=== PATIENT | male | born 1960 | race Two or more races ===

== ENCOUNTER 2020-02-11 08:49 | Outpatient (REF) | payer OTHER, SELFPAY | END 2020-02-11 08:50 | disposition home or self-care (01) | LOC: HO.LAB 08:49 | PROVIDERS: Visit Provider Internal Medicine | DX: Z20.828 Contact with and (suspected) exposure to other viral communicable diseases (principal) | CPT/HCPCS: 87635 ==

== ENCOUNTER 2021-01-21 10:09 | Emergency (ER) | payer OTHER, SELFPAY ==
--- NOTE | ~2021-01-21 | XR_ITS ---
EXAMINATION: XR CHEST CLINICAL INFORMATION: Chest pain COMPARISON: Chest radiographs 06/02/2014, 10/28/2006 TECHNIQUE: Portable upright AP view of the chest was obtained. FINDINGS: There is no pneumothorax or pneumomediastinum. No pleural reaction, airspace consolidation, or effusion. No visible groundglass opacities. The heart is normal in size. The vascularity is normal. The visualized hilar and mediastinal contours and bony structures are unremarkable. XR/XR chest 1V IMPRESSION: Unremarkable examination.
[2021-01-21 10:13] VITALS: BP 151/85; PULSE 71; RESP 18; TEMP 36.2; O2SAT 96; BMI 35.9
--- NOTE | 2021-01-21 10:24 | ED_ITS ---
HPI - Chest Pain General Chief Complaint: Chest Pain Stated Complaint: chest pain Time Seen by Provider: 01/21/21 10:15 Source: patient Mode of arrival: ambulatory Limitations: no limitations History of Present Illness HPI narrative: Patient presents to ED for atypical stermal chest pain presentation. Patient states since yesterday having sternall chest pain is also worse on movement. Patient states also mild pleuritic chest pain. Patient denies any swelling of lower extremities, calf pain, shortness of breath, coughing up blood, fever or chills. Patient does states history of GERD. Patient states mild pleuretic chest pain. Related Data Previous Rx's Medication Instructions Recorded famotidine 20 mg tablet (Pepcid) 20 mg PO BID 10 Days #20 tab 01/21/21 Allergies Allergy/AdvReac Type Severity Reaction Status Date / Time No Known Allergies Allergy Unverified 01/08/20 16:39 [No Known Allergies*] Review of Systems Review of Systems: Yes all other systems are reviewed and are negative Constitutional: Constitutional: Reports as per HPI and Reports no additional constitutional complaints Eyes: Eyes: Reports as per HPI and Reports no additional eye complaints ENT: Reports system reviewed and no additional complaints, except as documented and Reports as per HPI Cardiovascular: Cardiovascular: Reports as per HPI, Reports no additional cardiovascular complaints and Reports chest pain Respiratory: Respiratory: Reports as per HPI and Reports no additional respiratory complaints Gastrointestinal: Gastrointestinal: Reports as per HPI and Reports no additional gastrointestinal complaints Genitourinary: Genitourinary: Reports no additional male genitourinary comp laints and Reports as per HPI Musculoskeletal: Musculoskeletal: Reports no additional musculoskeletal complaints and Reports as per HPI Neurologic: Reports system reviewed and no additional complaints, except as documented and Reports as per HPI Psychiatric: Psychiatric: Reports no additional psychiatric complaints and Reports as per HPI [facility] Past Medical History Medical History (Updated 01/21/21 @ 12:46 by MARY Bronson) No known health problems Social History Social History Alcohol intake: unknown Patient Tobacco Use Status: Tobacco use Unknown Use of substances other than those prescribed or required for medical reasons: Unknown Advance Directives: No Advance Directives Information Provided: No Physical Exam Vital Signs: Vital Signs: Last Vital Signs Temp 97.2 F 01/21/21 10:13 Pulse 64 01/21/21 12:40 Resp 18 01/21/21 12:40 BP 128/78 01/21/21 12:40 Pulse Ox 98 01/21/21 12:40 Body Mass Index 35.9 Const: General: cooperative, healthy appearing, comfortable, no acute distress, well developed, alert, awake and Physically active Orientation/consciousness: patient oriented x3 HENMT: Head: Yes normal to inspection, Yes No palpable skull fracture present, Yes normocephalic and Yes atraumatic Eyes: General: appearance normal, both eyes and all related structures Neck: Neck: Yes normal visual inspection, Yes full ROM, Yes no lymphadenopathy, Yes no meningeal signs, Yes trachea midline, Yes supple and No tender Chest: Chest palpation & inspection: normal inspection of the chest and normal palpation of entire chest wall Resp: Effort & Inspection: normal respiratory effort and able to speak in complete sentences Auscultation: clear to auscultation bilaterally Cardio: Jugular venous distension: no JVD Heart sounds: S1 normal heart sound present and S2 normal heart sound present GI: Inspection: Yes normal to inspection and No abdominal wall ecchymosis Palpation (GI): Soft to palpation, not firm, nontender, no guarding and not rigid : General: No CVA tenderness and Yes no CVA tenderness Back/Spine/Pelvis: Back: no CVA tenderness, No CVA tenderness and No back tenderness Skin: General skin exam: no rashes or lesions noted and elasticity normal Neuro: General: patient oriented x3, gait normal, no meningeal signs and CN's II-XI intact bilaterally Cranial nerves: Yes CN's II-XII intact bilaterally Extrem: Other: Lower extremities negative for swelling, pitting edema, or calf tenderness. General: Yes normal to inspection and Yes full ROM Psych: Appearance: grossly normal, well kempt and not disheveled Course Course Course Narrative: Atypical chest pain. Patient have cardiac evaluation, EKG, and be given GERD like cocktail. Reevaluation(s) Reevaluation #1: EKG negative STEMI. EKG does not show any new changes. Chest x-ray negative for pneumonia. Troponin after having symptoms for at least a day and a half came back negative. BNP negative for CHF. D-dimer negative. Wells criteria is 0. COVID swab negative. Patient informed to follow-up with PCP for further evaluation. Patient states symptoms improved with GERD meds. Patient given copy of labs, images, and EKG for follow-up with PCP. Time: 12:41 MDM - Chest Pain MDM Narrative Medical decision making narrative: Atypical chest pain. GERD Lab Data Result diagrams: 01/21/21 10:36 01/21/21 10:36 Labs: Lab Results 01/21/21 01/21/21 01/21/21 Range/Units 10:36 10:36 10:36 WBC 6.8 (4.8-10.8) X10*3/uL RBC 4.24 L (4.60-5.80) X10*6/uL Hgb 12.9 L (14.0-18.0) g/dl Hct 37.5 L (42-52) % MCV 88.4 (80-98) fL MCH 30.4 (27.0-33.0) pg MCHC 34.4 (31.0-36.0) g/dl RDW 13.0 (11.0-16.0) % Plt Count 204 (160-400) X10*3/uL MPV 9.8 (9.4-12.4) fL Immature Gran % (Auto) 0.3 (0.0-0.4) % Neut % (Auto) 76.5 H (45-73) % Lymph % (Auto) 14.7 L (20-40) % [place] % (Auto) 7.3 (2-11) % Eos % (Auto) 0.9 (0-4) % Baso % (Auto) 0.3 (0-2) % Lymph # (Auto) 1.0 L (1.2-4.9) X10*3/uL [place] # (Auto) 0.5 (0.1-1.2) X10*3/uL Eos # (Auto) 0.1 (0.0-0.4) X10*3/uL Baso # (Auto) 0.0 (0.0-0.2) X10*3/uL Abs Immat Gran (auto) 0.02 (0.00-0.03) X10*3/uL Absolute Neuts (auto) 5.2 (2.0-8.3) X10*3/uL Absolute Nucleated RBC 0.000 (0.0-0.012) X10*3/uL Nucleated RBC % (auto) 0.0 (0.0-0.2) /100WBC PT 12.3 (9.9-13.0) SEC INR 1.1 (0.9-1.1) APTT 31.9 (24.1-38.0) SEC D-Dimer < 200 NG/ML Sodium 141 (135-145) mmol/L Potassium 3.7 (3.3-5.1) mmol/L Chloride 109 H (96-108) mmol/L Carbon Dioxide 24 (22-29) mmol/L Anion Gap 12 (12-20) BUN 12 (9-16) mg/dL Creatinine 0.72 (0.5-1.4) mg/dL Estim Creat Clear Calc 141.0 Estimated GFR > 60 Random Glucose 122 H (60-115) mg/dL Calcium 8.9 (8.4-10.2) mg/dL Total Bilirubin 1.3 H (0.0-1.0) mg/dL AST 20 (5-37) U/L ALT 17 (0-40) U/L Alkaline Phosphatase 72 (39-117) U/L Troponin I High Sens (<3.5-35.0) ng/L B-Natriuretic Peptide (<100) pg/mL Total Protein 6.5 (6.5-8.0) g/dL Albumin 4.0 (3.5-5.0) g/dL COVID-19 (JUMANA) (Negative) COVID-19 Clin Com 01/21/21 01/21/21 Range/Units 10:36 10:36 WBC (4.8-10.8) X10*3/uL RBC (4.60-5.80) X10*6/uL Hgb (14.0-18.0) g/dl Hct (42-52) % MCV (80-98) fL MCH (27.0-33.0) pg MCHC (31.0-36.0) g/dl RDW (11.0-16.0) % Plt Count (160-400) X10*3/uL MPV (9.4-12.4) fL Immature Gran % (Auto) (0.0-0.4) % Neut % (Auto) (45-73) % Lymph % (Auto) (20-40) % [place] % (Auto) (2-11) % Eos % (Auto) (0-4) % Baso % (Auto) (0-2) % Lymph # (Auto) (1.2-4.9) X10*3/uL [place] # (Auto) (0.1-1.2) X10*3/uL Eos # (Auto) (0.0-0.4) X10*3/uL Baso # (Auto) (0.0-0.2) X10*3/uL Abs Immat Gran (auto) (0.00-0.03) X10*3/uL Absolute Neuts (auto) (2.0-8.3) X10*3/uL Absolute Nucleated RBC (0.0-0.012) X10*3/uL Nucleated RBC % (auto) (0.0-0.2) /100WBC PT (9.9-13.0) SEC INR (0.9-1.1) APTT (24.1-38.0) SEC D-Dimer NG/ML Sodium (135-145) mmol/L Potassium (3.3-5.1) mmol/L Chloride (96-108) mmol/L Carbon Dioxide (22-29) mmol/L Anion Gap (12-20) BUN (9-16) mg/dL Creatinine (0.5-1.4) mg/dL Estim Creat Clear Calc Estimated GFR Random Glucose (60-115) mg/dL Calcium (8.4-10.2) mg/dL Total Bilirubin (0.0-1.0) mg/dL AST (5-37) U/L ALT (0-40) U/L Alkaline Phosphatase (39-117) U/L Troponin I High Sens < 3.5 (<3.5-35.0) ng/L B-Natriuretic Peptide 40 (<100) pg/mL Total Protein (6.5-8.0) g/dL Albumin (3.5-5.0) g/dL COVID-19 (JUMANA) Negative (Negative) COVID-19 Clin Com See Note ECG Data ECG #1: Interpretation: Normal sinus rhythm. Ventricular rate 67. Pr interval 168. QRS 96. QTC 424. Negative STEMI Discharge Plan Discharge Clinical Impression: Atypical chest pain, Chest pain due to GERD Patient Disposition: Home, Self-Care Instructions: Chest Pain (ED), Gastroesophageal Reflux Disease (ED) Additional Instructions: Return to the ED immediately swelling of lower extremities, calf pain, coughing up blood, fever, chills, worsening chest pain, shortness of breath, dizziness, weakness, or any other concerning symptoms. Please follow-up with your primary care provider Prescriptions: New famotidine [Pepcid] 20 mg tablet 20 mg PO BID 10 Days Qty: 20 RF: 0 Interventions: ED Discharge Assessment Last Done: 01/21/21 13:09 Discharge Date/Time: 01/21/21 13:10 Print Language: Singaporean
[2021-01-21 10:41] LABS: MANUAL DIFF FLAG NO
[2021-01-21 10:44] LABS: Basophils Percent Auto 0.3 % (0-2); Eosinophils Absolute Auto 0.1 X10*3/uL (0.0-0.4); Eosinophils Percent Auto 0.9 % (0-4); Hematocrit 37.5 % (42-52); Hemoglobin 12.9 g/dl (14.0-18.0); Imm Gran Abs Auto 0.02 X10*3/uL (0.00-0.03); Imm Gran Pct Auto 0.3 % (0.0-0.4); Lymphocytes Percent Auto 14.7 % (20-40); Mean Corpuscular HGB Conc 34.4 g/dl (31.0-36.0); Mean Corpuscular Hemoglobin 30.4 pg (27.0-33.0); Mean Corpuscular Volume 88.4 fL (80-98); Mean Platelet Volume 9.8 fL (9.4-12.4); Monocytes Absolute Auto 0.5 X10*3/uL (0.1-1.2); Monocytes Percent Auto 7.3 % (2-11); Neutrophils Absolute Auto 5.2 X10*3/uL (2.0-8.3); Neutrophils Percent Auto 76.5 % (45-73); Platelet Count 204 X10*3/uL (160-400); Red Blood Count 4.24 X10*6/uL (4.60-5.80); White Blood Count 6.8 X10*3/uL (4.8-10.8)
[2021-01-21] MEDS: PHENobarb/Hyoscy/Atropine/Scop 10 ML ELIXIR PO (10:46)
[2021-01-21] MEDS: Lidocaine HCl Viscous 2 % 15 ML SOLUTION MUCOUS MEM (10:46)
[2021-01-21] MEDS: Famotidine 20 MG TABLET PO (10:46)
[2021-01-21] MEDS: Magnesium Hydrox/Alum Hydrox 30 ML ORAL.SUSP PO (10:47)
[2021-01-21 10:49] VITALS: BP 123/71; PULSE 74; RESP 16; O2SAT 98
[2021-01-21 10:50] LABS: INTERNATIONAL NORM RATIO 1.1 (0.9-1.1); Prothrombin Time 12.3 SEC (9.9-13.0)
[2021-01-21 10:53] LABS: Partial Thromboplastin Time 31.9 SEC (24.1-38.0)
[2021-01-21 10:55] LABS: D Dimer < 200 NG/ML
[2021-01-21 10:59] LABS: COVID-19 Test Negative (Negative); IDNOW Serial# 9DD0AD1C
[2021-01-21 11:02] LABS: Alanine Aminotransferase 17 U/L (0-40); Alkaline Phosphatase 72 U/L (39-117); Anion Gap 12 (12-20); Aspartate Amino Transferase 20 U/L (5-37); Bilirubin Total 1.3 mg/dL (0.0-1.0); Blood Urea Nitrogen 12 mg/dL (9-16); Calcium 8.9 mg/dL (8.4-10.2); Carbon Dioxide 24 mmol/L (22-29); Chloride 109 mmol/L (96-108); Estimated Glomerular Filt Rate > 60; Glucose Random 122 mg/dL (60-115); Potassium 3.7 mmol/L (3.3-5.1); Sodium 141 mmol/L (135-145); Total Protein 6.5 g/dL (6.5-8.0)
[2021-01-21 11:04] LABS: B Type Natriuretic Peptide 40 pg/mL (<100); Troponin-I High Sensitivity < 3.5 ng/L (<3.5-35.0)
--- NOTE | 2021-01-21 11:41 | ECG_ITS ---
Test Reason : CHEST PAIN Blood Pressure : / mmHG Vent. Rate : 067 BPM Atrial Rate : 067 BPM P-R Int : 168 ms QRS Dur : 096 ms QT Int : 402 ms P-R-T Axes : 015 -04 010 degrees QTc Int : 424 ms Normal sinus rhythm Nonspecific T wave abnormality Abnormal ECG When compared with ECG of 06-JUN-2016 19:10, No significant change was found Referred By: Rome Millard Electronically Signed By:JESSICA ESPOSITO
[2021-01-21 12:40] VITALS: BP 128/78; PULSE 64; RESP 18; O2SAT 98
== END 2021-01-21 13:10 | disposition home or self-care (01) ==
PROVIDERS: Physician Assistant; Emergency Provider Emergency Medicine; PCP Internal Medicine
DX: R07.89 Other chest pain (principal); K21.9 Gastro-esophageal reflux disease without esophagitis; Z20.822 Contact with and (suspected) exposure to COVID-19; Z79.899 Other long term (current) drug therapy
CPT/HCPCS: 36415; 71045; 80053; 83880; 84484; 85025; 85379; 85610; 85730; 87635; 93005; 99283; 99284; 99285

== ENCOUNTER 2021-02-22 08:26 | Outpatient (REF) | payer OTHER, SELFPAY | END 2021-02-22 08:27 | disposition home or self-care (01) | LOC: HO.LAB 08:26 | PROVIDERS: PCP Internal Medicine; Visit Provider Internal Medicine | DX: Z20.822 Contact with and (suspected) exposure to COVID-19 (principal) | CPT/HCPCS: C9803; U0003; U0005 ==

== ENCOUNTER 2021-03-03 11:50 | Outpatient (REF) | payer OTHER, SELFPAY ==
[2021-03-03 12:16] LABS: COVID-19 Test Positive (Negative)
== END 2021-03-03 11:51 | disposition home or self-care (01) ==
LOC: HO.LAB 11:50
PROVIDERS: PCP Internal Medicine; Visit Provider Internal Medicine
DX: Z20.822 Contact with and (suspected) exposure to COVID-19 (principal)
CPT/HCPCS: 36415; 87635; C9803

== ENCOUNTER 2021-09-30 16:42 | Emergency (ER) | payer OTHER, SELFPAY ==
[2021-09-30 17:48] VITALS: BP 126/87; PULSE 73; RESP 16; TEMP 36.7; O2SAT 98; BMI 33.7
[2021-09-30] MEDS: Acetaminophen 325 MG TABLET 975 MG PO (17:55)
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
[2021-09-30 19:04] VITALS: RESP 18
[2021-09-30] MEDS: HYDROmorphone HCl 2 MG/ML VIAL IM (19:04)
[2021-09-30] MEDS: Ketorolac Tromethamine 60 MG/2 ML VIAL IM (19:05)
[2021-09-30] MEDS: Bacitracin Oint 14 GM TUBE 1 APPL TOPICAL (19:06)
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
== END 2021-09-30 19:27 | disposition home or self-care (01) ==
PROVIDERS: Emergency Provider Emergency Medicine; PCP Internal Medicine
DX: T25.112A Burn of first degree of left ankle, initial encounter (principal); T24.192A Burn of first degree of multiple sites of left lower limb, except ankle and foot, initial encounter; T25.121A Burn of first degree of right foot, initial encounter; T23.101A Burn of first degree of right hand, unspecified site, initial encounter; T31.0 Burns involving less than 10% of body surface; X10.2XXA Contact with fats and cooking oils, initial encounter; Y93.9 Activity, unspecified; Y92.000 Kitchen of unspecified non-institutional (private) residence as the place of occurrence of the external cause; Y99.9 Unspecified external cause status
CPT/HCPCS: 96372; 99284; J1170; J1885

== ENCOUNTER 2021-10-02 11:11 | Emergency (ER) | payer OTHER, SELFPAY ==
[2021-10-02 11:13] VITALS: BP 156/75; PULSE 65; RESP 18; TEMP 36.4; O2SAT 98; BMI 34.4
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
[2021-10-02] MEDS: Diphth,Pertus(ACell),Tet Adult 0.5 ML SYRINGE IM (12:07)
[2021-10-02 12:28] VITALS: BP 161/92; PULSE 67; RESP 18; TEMP 36.7; O2SAT 93
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
== END 2021-10-02 14:07 | disposition home or self-care (01) ==
PROVIDERS: Emergency Provider Emergency Medicine; PCP Internal Medicine
DX: T23.002A Burn of unspecified degree of left hand, unspecified site, initial encounter (principal); T25.021A Burn of unspecified degree of right foot, initial encounter; T24.002A Burn of unspecified degree of unspecified site of left lower limb, except ankle and foot, initial encounter; X10.2XXA Contact with fats and cooking oils, initial encounter; Y93.9 Activity, unspecified; Y92.9 Unspecified place or not applicable; Y99.9 Unspecified external cause status
CPT/HCPCS: 16020; 90471; 90715; 96374; 99283; 99284

== ENCOUNTER 2023-08-26 11:41 | Emergency (ER) | payer OTHER, SELFPAY ==
[2023-08-26] VITALS (7 sets, daily range): BP systolic 150–171; BP diastolic 79–93; PULSE 55–70; RESP 16–18; TEMP 36.2–37.1; O2SAT 93–98; BMI 35.7
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
--- NOTE | 2023-08-26 11:56 | ECG_ITS ---
Test Reason : SYNCOPE Blood Pressure : / mmHG Vent. Rate : 065 BPM Atrial Rate : 065 BPM P-R Int : 172 ms QRS Dur : 092 ms QT Int : 410 ms P-R-T Axes : 005 -12 003 degrees QTc Int : 426 ms Normal sinus rhythm Minimal voltage criteria for LVH, may be normal variant ( R in aVL ) T wave abnormality, consider anterior ischemia Abnormal ECG When compared to the previous EKG of T wave changes more prominent Referred By: Ann Rose Electronically Signed By:Adria Ochoa
[2023-08-26 12:21] LABS: MANUAL DIFF FLAG NO
[2023-08-26 12:27] LABS: Basophils Percent Auto 0.5 % (0-2); Eosinophils Absolute Auto 0.1 X10*3/uL (0.0-0.4); Hematocrit 37.9 % (42.0-52.0); Hemoglobin 13.3 g/dl (14.0-18.0); Imm Gran Abs Auto 0.01 X10*3/uL (0.00-0.03); Imm Gran Pct Auto 0.2 % (0.0-0.4); Lymphocytes Percent Auto 17.8 % (20-40); Mean Corpuscular HGB Conc 35.1 g/dl (31.0-36.0); Mean Corpuscular Hemoglobin 30.9 pg (27.0-33.0); Mean Corpuscular Volume 88.1 fL (80.0-98.0); Mean Platelet Volume 9.2 fL (9.4-12.4); Monocytes Absolute Auto 0.6 X10*3/uL (0.1-1.2); Monocytes Percent Auto 10.6 % (2-11); Neutrophils Absolute Auto 3.8 x10*3/uL (2.0-8.3); Neutrophils Percent Auto 68.9 % (45-73); Platelet Count 180 X10*3/uL (160-400); Red Cell Distribution Width 13.3 % (11.0-16.0); White Blood Count 5.5 X10*3/uL (4.8-10.8)
[2023-08-26 12:33] LABS: INTERNATIONAL NORM RATIO 0.9 (0.9-1.1); Prothrombin Time 11.1 SEC (11.1-13.3)
[2023-08-26] MEDS: 0.9 % Sodium Chloride 1,000 ML 999 ML IVCONT (12:36)
[2023-08-26 12:42] LABS: D Dimer High Sensitivity < 150 NG/ML
[2023-08-26 12:43] LABS: B Type Natriuretic Peptide 22 pg/mL (<100)
[2023-08-26 12:46] LABS: Alanine Aminotransferase 19 U/L (0-40); Albumin Level 4.2 g/dL (3.5-5.0); Alkaline Phosphatase 69 U/L (39-117); Anion Gap 11 (12-20); Aspartate Amino Transferase 17 U/L (5-37); Bilirubin Total 0.7 mg/dL (0.0-1.0); Blood Urea Nitrogen 10 mg/dL (9-16); Calcium 9.2 mg/dL (8.4-10.2); Carbon Dioxide 26 mmol/L (22-29); Chloride 109 mmol/L (96-108); Creatinine Clr Calc Pharmacy 131.7; Estimated Glomerular Filt Rate > 60; Glucose Random 107 mg/dL (60-115); Magnesium 2.1 mg/dL (1.6-2.6); Potassium 3.8 mmol/L (3.3-5.1); Sodium 142 mmol/L (135-145)
[2023-08-26 12:57] LABS: Troponin-I High Sensitivity < 2.7 ng/L (<3.5-35.0)
[2023-08-26 12:59] LABS: Influenza A PCR NEGATIVE (Negative); Influenza B PCR NEGATIVE (Negative); Resp Syncy Virus RNA Qual PCR NEGATIVE (Negative); SARS COV2 PCR INHOUSE NEGATIVE (Negative)
[2023-08-26 15:23] LABS: Troponin-I High Sensitivity < 2.7 ng/L (<3.5-35.0)
== END 2023-08-26 15:53 | disposition home or self-care (01) ==
PROVIDERS: Nurse Practitioner Family; Emergency Provider Emergency Medicine; PCP Internal Medicine
DX: R55 Syncope and collapse (principal); Z03.818 Encounter for observation for suspected exposure to other biological agents ruled out
CPT/HCPCS: 0241U; 36415; 80053; 83735; 83880; 84484; 85025; 85379; 85610; 93005; 96360; 99284; 99285

== ENCOUNTER → 2023-08-26 11:56 | Outpatient (BNV) | payer OTHER, SELFPAY | PROVIDERS: Emergency Provider Emergency Medicine; PCP Internal Medicine; Visit Provider Internal Medicine Cardiovascular Disease | DX: R94.31 Abnormal electrocardiogram [ECG] [EKG] (principal) | CPT/HCPCS: 93010 ==

== ENCOUNTER 2023-09-06 13:53 | Outpatient (AMB) | payer OTHER, SELFPAY ==
--- NOTE | 2023-09-06 13:56 | MHC.OFFVIS ---
Vital Signs 09/06/23 13:57 09/06/23 14:21 09/06/23 14:21 09/06/23 14:21 Height 5 ft 10 in Weight 235 lb 14.314 oz BMI 33.8 BP 138/70 140/86 H 142/95 H 133/89 Blood Pressure Location Lt brachial Lt brachial Lt brachial Lt brachial Position Sitting Supine Sitting Standing Pulse 68 57 60 69 Pulse Source Pulse Oximeter Pulse Oximeter Pulse Oximeter Pulse Oximeter Pulse Oximetry (%) 98 Oxygen Delivery Method Room Air Intake [place] [facility] [place] Allergies Seasonal Allergies Allergy (Mild, Verified 09/06/23 14:07) Sneezing HPI Comments Details: 62-year-old male presents today for as a new patient to follow-up after the ED for a near syncopal episode. He was driving in his car and he suddenly felt a tingling sensation in his head. He reports this is the only time this has happened. He denies any recent illness, shortness of breath, chest pains, or significant medical history. He had some palpitations many years ago when he smoked and drank a lot of caffeine. He reports his blood pressures have varied at home from 130s-190s, but he notes his cuff is very old. He no longer smokes. He reports an echocardiogram is to be performed 09/10 at [facility]. [facility] Medical History Back pain Social History Alcohol intake: former Patient Tobacco Use Status: Former Tobacco user Review of Systems Const Denies weakness ENT Denies dizziness Card Denies chest pain, Denies chest pain with activity, Denies syncope, Denies rapid heart rate, Denies pedal edema, Denies edema, Denies leg edema, Denies lightheadedness, Denies palpitations, Denies dyspnea, Denies dyspnea on exertion and Denies orthopnea Resp Denies cough, Denies dyspnea and Denies dyspnea on exertion GI Denies hematochezia and Denies change in stool character Musc Denies abnormal gait, Denies muscle cramps, Denies muscle weakness, Denies numbness, Denies radiating pain into limb and Denies tingling Neuro Denies abnormal gait, Denies dizziness, Denies syncope, Denies numbness, Denies tingling and Denies weakness Endo Denies palpitations Physical Exam Vital Signs: Last Vital Signs Pulse 69 09/06/23 14:21 BP 133/89 09/06/23 14:21 Pulse Ox 98 09/06/23 13:57 Oxygen Delivery Method Room Air 09/06/23 13:57 BMI result Body Mass Index 33.8 Const General: healthy appearing and no acute distress Orientation/consciousness: patient oriented x3 HEENT Head: Yes normal to inspection Eyes General: appearance normal, both eyes and all related structures Neck Neck: Yes normal visual inspection Chest Chest palpation & inspection: normal inspection of the chest Resp Effort & Inspection: normal respiratory effort Auscultation: clear to auscultation bilaterally Cardio Jugular venous distension: no JVD Palpation: normal PMI Rate: regular rate Rhythm: regular rhythm Heart sounds: S1 normal heart sound present, S2 normal heart sound present, no click, no gallops, no murmurs and no rubs GI Inspection: Yes normal to inspection Palpation (GI): Soft to palpation Skin General skin exam: no rashes or lesions noted Neuro General: patient oriented x3 Extrem General: Yes normal to inspection Psych Appearance: grossly normal Assessment & Plan Assessment & Plan (1) Near syncope: Code(s): R55 - Syncope and collapse Category: Medical Plan Will order stress test to evaluate heart rate and blood pressure response to exertion and assess for ischemia. He has a history of back and knee pain so will order with nuclear imaging incase he can not adequately walk on the treadmill to assess for ischemia. Will request his echo results once performed. Ensure adequate hydration and well rounded diet. Orders: Orders NM cardiolite stress test 09/06/23 R55 - Syncope and collapse CA stress test 09/06/23 R55 - Syncope and collapse Medications: Discontinued cephalexin Discontinued Reason: Patient no longer taking 500 mg PO Q6H 7 days 28 caps 0RF famotidine (Pepcid) Discontinued Reason: Patient no longer taking 20 mg PO BID 10 days 20 tabs 0RF bacitracin Apply to the burn area 3 times a day Discontinued Reason: Patient no longer taking 1 appl topical TID 30 grams 3RF oxycodone Partial Fill upon patient request. Discontinued Reason: Patient no longer taking 5 mg PO TID PRN 20 tabs 0RF pain Coding Level of Care Code New Pt Level 3 (19220) Diagnoses Near syncope R55
[2023-09-06 13:57] VITALS: BP 138/70; PULSE 68; O2SAT 98; BMI 33.8
[2023-09-06 14:21] VITALS: BP 133/89; BP 140/86; BP 142/95; PULSE 57; PULSE 60; PULSE 69
== END 2023-09-06 14:46 | disposition home or self-care (01) ==
PROVIDERS: PCP Internal Medicine; Visit Provider Nurse Practitioner
DX: R55 Syncope and collapse (principal)
CPT/HCPCS: 99203

== ENCOUNTER → 2023-09-06 13:53 | Outpatient (BNVA) | payer OTHER, SELFPAY | PROVIDERS: PCP Internal Medicine; Visit Provider Nurse Practitioner | DX: R55 Syncope and collapse (principal) ==

== ENCOUNTER → 2023-10-23 09:06 | Outpatient (REF) | payer OTHER, SELFPAY ==
--- NOTE | ~2023-10-23 | NM_ITS ---
Exercise Myocardial perfusion study Indication: Syncope to evaluate for myocardial ischemia Technique: The patient was brought in for an exercise perfusion study on 10/23/2023. Patient performed exercise as per Doug protocol and was injected 35 mCi of sestamibi was given intravenously one target HR was achieved. Images were obtained using the SPECT gamma camera interlaced with the gating device. Images were obtained in supine position. Resting perfusion study was performed on 10/29/2023. Patient was administered 35 mCi of sestamibi intravenously at rest. Images were then obtained in supine position. Images obtained with and without CT attenuation. Total DLP 184 mGy-cm. Images were processed with the software and compared side to side in short axis, horizontal long axis and vertical long axis views. Findings: The stress perfusion study showed non attenuated images show mildly to moderately reduced uptake in the apical and inferoapical wall of the LV myocardium. Remainder of the LV myocardium is normally perfused. Attenuation corrected images show mildly reduced uptake in the apex of the LV myocardium.. The gated study shows normal LV systolic function with calculated LVEF of 55%. LV cavity is normal in size. The gated study shows normal systolic wall thickening and contraction of all segments. There is no transient ischemic dilation. Resting study shows non attenuated images show improved uptake in the apical and inferoapical wall of the LV myocardium. Remainder of the LV myocardium is normally perfused. Attenuated corrected images show improved uptake in the apex of the LV myocardium.. Gating at rest reveals normal systolic wall motion with ejection fraction at 50%. The findings are consistent with small area of mild intensity reversible defect of the apex suggestive of ischemia.. NM/NM cardiolite stress test Impression: 1. Mild intensity apical ischemia 2. Gated LVEF is 55% 3. Transient ischemic dilatation not present Stress EKG is negative for ischemia
--- NOTE | 2023-10-23 09:10 | CA_ITS ---
Acquisition Time: 2023-10-23 09:37:41 Total Exercise Time: 00:07:10 Test Indications: Syncope Medications: ASA FLONASE Protocol: EMILIA Max HR: 155 BPM 97% of Pred: 159 BPM Max BP: 186/100 mmHG Max Work Load: 8.8 METS Exercise stress test exercise 7 min 10 sec of Emilia protocol achieving 97% MPHR, without anginal symptoms, without arrhythmias, with HTN response to exercise, without EKG changes. Nuclear images pending. Test reviewed with Dr. Cutler. Referred By: Kimberly Navarro Overread By: Kimberly Navarro
== END ==
LOC: HO.CARD 09:06
PROVIDERS: PCP Internal Medicine; Visit Provider Nurse Practitioner
DX: R55 Syncope and collapse (principal)
CPT/HCPCS: 78452; 93017; A9500

== ENCOUNTER → 2023-10-23 09:10 | Outpatient (BNV) | payer OTHER, SELFPAY | PROVIDERS: PCP Internal Medicine; Visit Provider Nurse Practitioner | DX: R55 Syncope and collapse (principal) | CPT/HCPCS: 78452; 93016; 93018 ==

== ENCOUNTER 2023-11-13 10:07 | Outpatient (REF) | payer OTHER, SELFPAY ==
[2023-11-13 12:09] LABS: Anion Gap 11 (12-20); Blood Urea Nitrogen 7 mg/dL (9-16); Calcium 9.1 mg/dL (8.4-10.2); Carbon Dioxide 29 mmol/L (22-29); Chloride 104 mmol/L (96-108); Estimated Glomerular Filt Rate > 60; Glucose Random 117 mg/dL (60-115); Potassium 3.3 mmol/L (3.3-5.1); Sodium 141 mmol/L (135-145)
== END 2023-11-13 10:08 | disposition home or self-care (01) ==
LOC: HO.LAB 10:07
PROVIDERS: PCP Internal Medicine; Visit Provider Nurse Practitioner
DX: R94.39 Abnormal result of other cardiovascular function study (principal)
CPT/HCPCS: 36415; 80048

== ENCOUNTER 2023-11-20 15:06 | Emergency (ER) | payer OTHER, SELFPAY ==
--- NOTE | ~2023-11-20 | CT_ITS ---
EXAMINATION: CT head/brain wo IV con CLINICAL INFORMATION: Reason for Exam ams COMPARISON: None. TECHNIQUE: Contiguous axial imaging was performed from the skull base to vertex without intravenous contrast. Sagittal and coronal reformatted images were obtained. This CT examination was performed using dose optimization techniques as appropriate, variously including the following: * Automated exposure control * Adjustment of mA and/or kV according to patient size (this includes techniques or standardized protocols for targeted exams where dose is matched to indication/reason for exam; i.e. extremities or head) Use of iterative reconstruction technique DLP: 831 mGy-cm FINDINGS: No acute osseous or soft tissue abnormality. The mastoid air cells and visualized portions of the paranasal sinuses are well aerated. There is no evidence of acute intracranial hemorrhage or territorial infarction. No abnormal mass effect or midline shift is seen. Luong to white matter differentiation is well preserved. No extra-axial fluid collections are identified. No hydrocephalus. No significant volume loss. There is no abnormal attenuation within the brain parenchyma. CT/CT head/brain wo IV con IMPRESSION: No acute intracranial abnormality including hemorrhage, mass effect, hydrocephalus, or acute territorial edematous infarction.
--- NOTE | 2023-11-20 15:08 | ED.DIZZY ---
HPI - Dizziness General Chief Complaint: Neuro Symptoms/Deficit Stated Complaint: Light headed Time Seen by Provider: 11/20/23 16:52 Source: patient Mode of arrival: ambulatory Limitations: no limitations History of Present Illness ED Provider: Jerman LADD HPI Narrative: 63 year old male hx of obesity, htn, hld presents w/ lightheadeness, visual disturbances ( seeing spots), right sided head tingling since noon. Patient reports symptoms lasted a few hours and then resolved spontaneously without any intervention. No head trauma. Patient reprots a few months ago he had an episode like this but he felt like he was going to pass out at that time, he did not feel like he was going to passout today. Denies neck pain, vision changes, dizziness, weakness, cp, sob, nausea, vomiting, abd pain, fevers, chills. On ASA however no blood thinners. Related Data Home Medications ?Medication ?Instructions ?Recorded ?Confirmed aspirin 81 mg tablet,delayed 81 mg PO DAILY 09/06/23 release fluticasone propionate 50 1 spray intranasal DAILY 09/06/23 mcg/actuation nasal spray,suspension (Flonase Allergy Relief) ibuprofen 600 mg tablet (IBU) mg PO 09/06/23 loratadine 10 mg tablet (Allergy 10 mg PO DAILY 09/06/23 Relief (loratadine)) Previous Rx's ?Medication ?Instructions ?Recorded hydrochlorothiazide 25 mg tablet 25 mg PO DAILY 30 days #30 tabs 11/20/23 Allergies Allergy/AdvReac Type Severity Reaction Status Date / Time Seasonal Allergies Allergy Mild Sneezing Verified 11/20/23 15:13 Review of Systems Review of Systems: Yes all other systems are reviewed and are negative PMFSH Past Medical History Attestation statement: The following information was validated with the patient. Source: old records reviewed and nursing notes reviewed Medical History Abnormal nuclear stress test Hypertension Back pain Social History Social History Alcohol intake: former Patient Tobacco Use Status: Former Tobacco user Smoked in Last 30 Days: No Use of substances other than those prescribed or required for medical reasons: No Advance Directives: No Advance Directives Information Provided: No Physical Exam Vital Signs: Vital Signs: Last Vital Signs Temp 97.8 F 11/20/23 15:10 Pulse 72 11/20/23 17:15 Resp 18 11/20/23 15:10 BP 137/85 11/20/23 17:15 Pulse Ox 97 11/20/23 15:10 O2 Del Method Room Air 11/20/23 15:10 BMI result Body Mass Index 37.1 vss Appearance: Alert.? Oriented X3.? No acute distress.? Head: Normocephalic, atraumatic, no step-offs or deformities Eyes: Pupils equal, round and reactive to light.? CVS: Normal heart rate and rhythm.? Pulses normal.? Respiratory: No respiratory distress.? Breath sounds normal.? Abdomen: Soft and nontender.? Skin: Skin warm and dry.? Normal skin color.? Normal skin turgor.? Extremities: No lower extremity edema.? No calf ttp. 5/5 strength to bilateral upper and lower extremities Back: No midline tenderness, no C-spine tenderness, full range of motion, no CVA tenderness bilaterally Neuro: Oriented X 3.? No motor deficit.? No sensory deficit. CN 2-12 intact . Normal finger to nose, heel to crowley. NIHSS-0 Course Course Course Narrative: This is a Rapid Medical Examination (RME) performed by Leah Evans PA-C in triage. Full HPI, ROS, assessment and treatment plan per primary provider in the Main ED. 63 yo male with history of HTN, arthritis who presents to the ER for evaluation of black spots in his vision when he was driving. He has felt off today but cannot elaborate. He denies any dizziness, weakness, numbness. He had tingling on his forehead earlier today as well, last few seconds and self resolved. Neurologically intact in triage. CN II-XII intact, strength is equal and symmetrical throughout. normal speech. Plan: labs, EKG Reevaluation(s) Reevaluation #1: CBC with a normocytic anemia. Chemistry no acute findings needing intervension. UA clean. Urine toxicology clean. Head CT pending Dr. Lynn to admit patient Time: 18:41 Reevaluation #2: Patient upset as the admission process is taking too long. Dr. Doss is currently at a rapid response therefore has not seen patient for admission. Patient states he wants to leave. He verbalizes risks of stroke, , worsening condition. Will be leaving against medical advice. Time: 20:27 Medical Decision Making Medical Decision Making [facility] Narrative: 63-year-old male presents with lightheadedness, visual disturbances and tingling to the right side of his head all of which started at noon lasted a few hours and subsided. Now he is feeling normal. Physical exam benign. NIH stroke scale 0 History and physical exam most concerning for TIA. Unlikely intracranial hemorrhage, stroke, posterior stroke. Will rule out metabolic derangements. Unlikely UTI. I do not suspect acute meningitis or encephalitis. Plan labs, imaging, urine. Differential Diagnosis Differential Diagnoses: The differential diagnosis associated with the presentation includes History and physical exam most concerning for TIA. Unlikely intracranial hemorrhage, stroke, posterior stroke. Will rule out metabolic derangements. Unlikely UTI. I do not suspect acute meningitis or encephalitis. Admission/Observation Consideration of admission/observation: Escalation of care including admission/observation considered possible Lab Data [facility] Lab Attestation statement: I reviewed the patient's lab results. 11/20/23 16:04 11/20/23 16:04 Labs: Lab Results 11/20/23 11/20/23 Range/Units 16:04 17:06 WBC 8.2 (4.8-10.8) X10*3/uL RBC 4.39 L (4.60-5.80) X10*6/uL Hgb 13.8 L (14.0-18.0) g/dl Hct 39.1 L (42.0-52.0) % MCV 89.1 (80.0-98.0) fL MCH 31.4 (27.0-33.0) pg MCHC 35.3 (31.0-36.0) g/dl RDW 12.9 (11.0-16.0) % Plt Count 191 (160-400) X10*3/uL MPV 9.4 (9.4-12.4) fL Immature Gran % (Auto) 0.4 (0.0-0.4) % Neut % (Auto) 78.4 H (45-73) % Lymph % (Auto) 11.3 L (20-40) % Luna % (Auto) 7.7 (2-11) % Eos % (Auto) 1.7 (0-4) % Baso % (Auto) 0.5 (0-2) % Lymph # (Auto) 0.9 L (1.2-4.9) X10*3/uL Luna # (Auto) 0.6 (0.1-1.2) X10*3/uL Eos # (Auto) 0.1 (0.0-0.4) X10*3/uL Baso # (Auto) 0.0 (0.0-0.2) X10*3/uL Abs Immat Gran (auto) 0.03 (0.00-0.03) X10*3/uL Absolute Neuts (auto) 6.4 (2.0-8.3) x10*3/uL Absolute Nucleated RBC 0.000 (0.0-0.012) X10*3/uL Nucleated RBC % (auto) 0.0 (0.0-0.2) /100WBC Sodium 140 (135-145) mmol/L Potassium 3.3 (3.3-5.1) mmol/L Chloride 106 (96-108) mmol/L Carbon Dioxide 25 (22-29) mmol/L Anion Gap 12 (12-20) BUN 8 L (9-16) mg/dL Creatinine 0.77 (0.5-1.4) mg/dL Estim Creat Clear Calc 114.0 Estimated GFR > 60 Random Glucose 132 H (60-115) mg/dL Calcium 9.9 D (8.4-10.2) mg/dL Magnesium 2.1 (1.6-2.6) mg/dL Total Bilirubin 1.3 H (0.0-1.0) mg/dL Direct Bilirubin 0.4 (0.0-0.5) mg/dL AST 20 (5-37) U/L ALT 23 (0-40) U/L Alkaline Phosphatase 75 (39-117) U/L Total Protein 7.0 (6.5-8.0) g/dL Albumin 4.2 (3.5-5.0) g/dL Urine Color Yellow Urine Appearance Clear Urine pH 7.0 (5.0-9.0) Ur Specific [place] 1.010 (1.005-1.025) Urine Protein Negative (Neg-Trace) mg/dL Urine Glucose (UA) Negative (Negative) mg/dL Urine Ketones Negative (Negative) mg/dL Urine Blood Negative (Negative) Urine Nitrite Negative (Negative) Ur Leukocyte Esterase Negative (Negative) Urine Opiates Screen Not Detected (Not Detect) Ur Buprenorphine Scrn Not Detected (Not Detect) ng/mL Ur Oxycodone Screen Not Detected (Not Detect) ng/mL Urine Methadone Screen Not Detected (Not Detect) ng/mL Urine Fentanyl Screen Not Detected (Not Detect) Ur Barbiturates Screen Not Detected (Not Detect) Ur Phencyclidine Scrn Not Detected (Not Detect) Ur Amphetamines Screen Not Detected (Not Detect) U Benzodiazepines Scrn Not Detected (Not Detect) Urine Cocaine Screen Not Detected (Not Detect) U Marijuana (THC) Screen Not Detected (Not Detect) Independent Interpretation I performed an independent interpretation of an: CT Scan (CT/CT head/brain wo IV con IMPRESSION: No acute intracranial abnormality including hemorrhage, mass effect, hydrocephalus, or acute territorial edematous infarction. ) Radiology Impression Discussion of test interpretation with radiology: I have reviewed the radiologist's reading. External Record Review External record reviewed: Office record, Outpatient record, Prior outpatient labs, Prior outpatient radiology and Primary care record Chronic Conditions Patient?s care impacted by: Hypertension and Other (obesity ) Critical Care Time Critical Care Time Critical Care Time: No Discharge Plan Discharge Clinical Impression: Brain TIA, Left against medical advice Patient Disposition: Still a Patient Instructions: Against Medical Advice (ED), Transient Ischemic Attack (ED) Additional Instructions: Take your medications as prescribed. If you were prescribed antibiotics today, it is important that you take your medication to their entirety, do not skip any doses, do not finish them early. Follow-up with your primary care provider this week. Return to the emergency department with new or worsening symptoms. Such as fevers, chills, chest pain, shortness of breath, nausea, vomiting, dizziness, headache, vision changes, lethargy In case of emergency call 911 Patient decided to leave against medical advice. I took the time to go over risks of leaving against medical advice including . Patient verbalizes understanding of this. Advised them to come back if they change their mind. Hx and pe concerning for cellulitis. Will rule out UTI epididymitis, orchitis, gonorrhea and chlamydia. Unlikely torsion. No signs of necrotizing infection or Willy gangrene Prescriptions: No Action hydrochlorothiazide 25 mg tablet 25 mg PO DAILY 30 Days Qty: 30 3RF aspirin 81 mg tablet,delayed release (DR/EC) 81 mg PO DAILY ibuprofen [IBU] 600 mg tablet PO fluticasone propionate [Flonase Allergy Relief] 50 mcg/actuation spray,suspension 1 spray intranasal DAILY Rx Instructions: administer into each nostril loratadine [Allergy Relief (loratadine)] 10 mg tablet 10 mg PO DAILY Referrals: [facility] [place] [facility] [place]Provider Group] - 1 day Claire Marshall MD [Primary Care Provider] - 2 days Stand Alone Forms: Work/School Release Print Language: [place]
[2023-11-20 15:10] VITALS: BP 150/87; PULSE 76; RESP 18; TEMP 36.6; O2SAT 97; BMI 37.1
--- NOTE | 2023-11-20 15:16 | ECG_ITS ---
Test Reason : R SIDE FACIAL NUMB Blood Pressure : / mmHG Vent. Rate : 066 BPM Atrial Rate : 066 BPM P-R Int : 166 ms QRS Dur : 098 ms QT Int : 386 ms P-R-T Axes : 013 -18 013 degrees QTc Int : 404 ms Normal sinus rhythm Nonspecific T wave abnormality Abnormal ECG When compared with ECG of 26-AUG-2023 12:00, No significant change was found Referred By: Marj Evans Electronically Signed By:Adria Ochoa
[2023-11-20 16:09] LABS: MANUAL DIFF FLAG NO
[2023-11-20 16:11] LABS: Basophils Percent Auto 0.5 % (0-2); Eosinophils Absolute Auto 0.1 X10*3/uL (0.0-0.4); Eosinophils Percent Auto 1.7 % (0-4); Hematocrit 39.1 % (42.0-52.0); Hemoglobin 13.8 g/dl (14.0-18.0); Imm Gran Abs Auto 0.03 X10*3/uL (0.00-0.03); Imm Gran Pct Auto 0.4 % (0.0-0.4); Lymphocytes Absolute Auto 0.9 X10*3/uL (1.2-4.9); Lymphocytes Percent Auto 11.3 % (20-40); Mean Corpuscular HGB Conc 35.3 g/dl (31.0-36.0); Mean Corpuscular Hemoglobin 31.4 pg (27.0-33.0); Mean Corpuscular Volume 89.1 fL (80.0-98.0); Mean Platelet Volume 9.4 fL (9.4-12.4); Monocytes Absolute Auto 0.6 X10*3/uL (0.1-1.2); Monocytes Percent Auto 7.7 % (2-11); Neutrophils Absolute Auto 6.4 x10*3/uL (2.0-8.3); Neutrophils Percent Auto 78.4 % (45-73); Platelet Count 191 X10*3/uL (160-400); Red Blood Count 4.39 X10*6/uL (4.60-5.80); Red Cell Distribution Width 12.9 % (11.0-16.0); White Blood Count 8.2 X10*3/uL (4.8-10.8)
[2023-11-20 16:24] LABS: Alanine Aminotransferase 23 U/L (0-40); Albumin Level 4.2 g/dL (3.5-5.0); Alkaline Phosphatase 75 U/L (39-117); Anion Gap 12 (12-20); Aspartate Amino Transferase 20 U/L (5-37); Bilirubin Direct 0.4 mg/dL (0.0-0.5); Bilirubin Total 1.3 mg/dL (0.0-1.0); Blood Urea Nitrogen 8 mg/dL (9-16); Calcium 9.9 mg/dL (8.4-10.2); Carbon Dioxide 25 mmol/L (22-29); Chloride 106 mmol/L (96-108); Estimated Glomerular Filt Rate > 60; Glucose Random 132 mg/dL (60-115); Magnesium 2.1 mg/dL (1.6-2.6); Potassium 3.3 mmol/L (3.3-5.1); Sodium 140 mmol/L (135-145)
[2023-11-20 17:12] LABS: Appearance Urine Clear; Color Urine Yellow; Glucose Urine UA Negative (Negative); Leukocyte Esterase Urine Negative (Negative); Nitrite Urine Negative (Negative); Urine Blood Negative (Negative); Urine Ketones Negative (Negative); Urine Protein Negative (Neg-Trace)
[2023-11-20 17:14] VITALS: BP 143/83; PULSE 60
[2023-11-20 17:15] VITALS: BP 132/91; BP 137/85; PULSE 68; PULSE 72
[2023-11-20 17:24] LABS: Amphetamine Screen Urine Not Detected (Not Detect); Barbiturates, Urine Not Detected (Not Detect); Benzodiazepines Screen Urine Not Detected (Not Detect); Buprenorphine Scr Not Detected (Not Detect); Cannabinoid Screen Urine Not Detected (Not Detect); Cocaine Screen Urine Not Detected (Not Detect); Fentanyl, urine Not Detected (Not Detect); Methadone Screen, Urine Not Detected (Not Detect); Opiate Screen Urine Not Detected (Not Detect); Oxycodone Screen Urine Not Detected (Not Detect); Phencyclidine Screen Urine Not Detected (Not Detect)
--- NOTE | 2023-11-20 19:29 | PC.NURSE ---
care assumed of patient at this time; pt is very restless in the hallway, waiting on CT scan results.
[2023-11-20 20:39] VITALS: BP 137/85; PULSE 72; RESP 18; TEMP 36.6; O2SAT 97
== END 2023-11-20 21:06 | disposition left against medical advice (07) ==
PROVIDERS: Physician Assistant; Emergency Provider Emergency Medicine; PCP Internal Medicine
DX: G45.9 Transient cerebral ischemic attack, unspecified (principal); R42 Dizziness and giddiness; R20.0 Anesthesia of skin; R94.31 Abnormal electrocardiogram [ECG] [EKG]; H53.9 Unspecified visual disturbance; Z87.891 Personal history of nicotine dependence; Z79.899 Other long term (current) drug therapy; Z51.81 Encounter for therapeutic drug level monitoring
CPT/HCPCS: 36415; 70450; 80048; 80076; 80307; 81003; 83735; 85025; 93005; 99284

== ENCOUNTER → 2023-11-20 15:16 | Outpatient (BNV) | payer OTHER, SELFPAY | PROVIDERS: Emergency Provider Emergency Medicine; PCP Internal Medicine; Visit Provider Internal Medicine Cardiovascular Disease | DX: R94.31 Abnormal electrocardiogram [ECG] [EKG] (principal) | CPT/HCPCS: 93010 ==

== ENCOUNTER 2023-11-24 12:50 | Inpatient (IN) | payer OTHER, SELFPAY ==
--- NOTE | ~2023-11-24 | MR_ITS ---
EXAMINATION: MR BRAIN WITHOUT CONTRAST CLINICAL INFORMATION: Dizziness COMPARISON: CTA 11/24/2023 TECHNIQUE: MRI of the brain was obtained using routine sequences without contrast. FINDINGS: No acute infarct. No acute intracranial hemorrhage or extra-axial fluid collection. The ventricles and sulci are normal in size and configuration without significant volume loss or hydrocephalus. No mass lesion, mass effect, or herniation pattern. Normal intracranial arterial and dural venous sinus flow voids. Normal appearance of the midline structures. The orbits are grossly unremarkable. The paranasal sinuses and mastoids are well aerated. Normal marrow signal. MR/MR head/brain wo con IMPRESSION: Unremarkable brain MRI.
--- NOTE | ~2023-11-24 | CT_ITS ---
EXAMINATION: CT ANGIOGRAM HEAD CT ANGIOGRAM NECK CLINICAL INFORMATION: tia symptoms COMPARISON: None. TECHNIQUE: Test bolus sequences followed by intravenous administration 70 mL of Omnipaque. Helical imaging was performed in the axial plane from the aortic arch to the skull vertex. Delayed postcontrast imaging of the head was also performed. The data was processed at the ct mri technologist's workstation for generation of MIP sequences. Angled MIPs and volume rendered reformatted images were also generated at an offline 3D workstation. Stenoses are assessed in accordance with Barbosa et al. Quantification of Carotid Stenosis on CT Angiography. AJR 2006. 27(1):13-19. [address] CT examination was performed using dose optimization techniques as appropriate, variously including the following: *Automated exposure control *Adjustment of mA and/or kV according to patient size (this includes techniques or standardized protocols for targeted exams where dose is matched to indication/reason for exam; i.e. extremities or head) *Use of iterative reconstruction technique DLP: 1628 mGy-cm FINDINGS: CT HEAD: Intracranial findings are discussed separately. No pathologic intra-axial enhancement or regional oligemia. CTA HEAD: No hemodynamically significant stenosis or occlusion in the anterior or posterior circulation. Dolichoectasia of the anterior circulation can be correlated clinically for underlying hypertension. Calcific plaque of the intradural right vertebral artery without stenosis. The distal intradural left vertebral artery is congenitally diminutive and difficult to diagnostically assessed. No aneurysms and no high flow vascular malformations. Timing of the contrast bolus allows assessment of the major dural venous sinuses, which all opacify normally CTA NECK: Four vessel branching pattern with left vertebral artery arising directly from the arch between the left common carotid and left subclavian arteries. Origins of the great vessels are widely patent. The common carotid arteries are widely patent. Partially calcified atherosclerotic disease at the left carotid bifurcation without stenosis. The right carotid bifurcation is normal. Widely patent internal carotid arteries. The right vertebral artery is dominant. The right vertebral artery origin is widely patent. 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 Both vertebral arteries are widely patent throughout their extracranial cervical course. CT NECK: Punctate calcified right palatine tonsilloliths. Right thyroid nodule measuring 7 mm, below size criteria for imaging follow-up. Cervical spondylosis without significant spinal canal stenosis. CT/CT angio head neck stroke IMPRESSION: 1. No acute intracranial findings. 2. 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 3. Dolichoectasia of the anterior circulation can be correlated clinically for underlying hypertension. This critical result was discussed with Deepthi HERNANDEZ at 2:50 PM on 11/24/2023 and it was ascertained that the content and urgency of the report was understood at the time of direct communication.
--- NOTE | ~2023-11-24 | CT_ITS ---
EXAMINATION: CT HEAD WITHOUT CONTRAST (STROKE PROTOCOL) CLINICAL INFORMATION: Stroke protocol. TIA symptoms COMPARISON: None available. TECHNIQUE: Contiguous axial imaging was performed from the skull base to vertex without intravenous administration of contrast. This CT examination was performed using dose optimization techniques as appropriate, variously including the following: *Automated exposure control *Adjustment of mA and/or kV according to patient size (this includes techniques or standardized protocols for targeted exams where dose is matched to indication/reason for exam; i.e. extremities or head) *Use of iterative reconstruction technique DLP: 771 mGy-cm FINDINGS: No intra-axial or extra-axial hemorrhage. No acute territorial infarct. Ventricles and sulci appear normal. Preservation of sam-white matter differentiation. No mass, mass effect, or midline shift. No fracture. The mastoid air cells and visualized paranasal sinuses are clear. CT/CT head for stroke IMPRESSION: No acute intracranial pathology. This critical result was discussed with Dr. Bo at 2:00 PM hours on 11/24/2023. It was ascertained that the content and urgency of the report was understood at the time of direct communication.
[2023-11-24 12:53] VITALS: BP 133/90; PULSE 80; RESP 18; TEMP 36.4; O2SAT 96; BMI 32.0
[2023-11-24 13:16] LABS: MANUAL DIFF FLAG NO
[2023-11-24 13:17] LABS: Basophils Percent Auto 0.4 % (0-2); Eosinophils Absolute Auto 0.1 X10*3/uL (0.0-0.4); Eosinophils Percent Auto 1.2 % (0-4); Hematocrit 37.4 % (42.0-52.0); Hemoglobin 13.9 g/dl (14.0-18.0); Imm Gran Abs Auto 0.02 X10*3/uL (0.00-0.03); Imm Gran Pct Auto 0.3 % (0.0-0.4); Lymphocytes Absolute Auto 0.9 X10*3/uL (1.2-4.9); Lymphocytes Percent Auto 12.6 % (20-40); Mean Corpuscular HGB Conc 37.2 g/dl (31.0-36.0); Mean Corpuscular Hemoglobin 31.7 pg (27.0-33.0); Mean Corpuscular Volume 85.4 fL (80.0-98.0); Mean Platelet Volume 9.7 fL (9.4-12.4); Monocytes Absolute Auto 0.6 X10*3/uL (0.1-1.2); Neutrophils Absolute Auto 5.8 x10*3/uL (2.0-8.3); Neutrophils Percent Auto 77.5 % (45-73); Platelet Count 200 X10*3/uL (160-400); Red Blood Count 4.38 X10*6/uL (4.60-5.80); Red Cell Distribution Width 12.7 % (11.0-16.0); White Blood Count 7.4 X10*3/uL (4.8-10.8)
[2023-11-24 13:22] LABS: Appearance Urine Clear; Color Urine Yellow; Glucose Urine UA Negative (Negative); Leukocyte Esterase Urine Negative (Negative); Nitrite Urine Negative (Negative); PH 7.5 (5.0-9.0); Urine Blood Negative (Negative); Urine Ketones Negative (Negative); Urine Protein Negative (Neg-Trace)
[2023-11-24 13:36] LABS: Alanine Aminotransferase 21 U/L (0-40); Albumin Level 4.3 g/dL (3.5-5.0); Alkaline Phosphatase 85 U/L (39-117); Anion Gap 13 (12-20); Aspartate Amino Transferase 22 U/L (5-37); Bilirubin Total 1.4 mg/dL (0.0-1.0); Blood Urea Nitrogen 11 mg/dL (9-16); Calcium 9.4 mg/dL (8.4-10.2); Carbon Dioxide 24 mmol/L (22-29); Chloride 103 mmol/L (96-108); Creatinine Clr Calc Pharmacy 123.3; Estimated Glomerular Filt Rate > 60; Glucose Random 129 mg/dL (60-115); Potassium 2.9 mmol/L (3.3-5.1); Sodium 137 mmol/L (135-145); Total Protein 7.3 g/dL (6.5-8.0)
--- NOTE | 2023-11-24 13:43 | ECG_ITS ---
Test Reason : ABDOMINAL PAIN Blood Pressure : / mmHG Vent. Rate : 067 BPM Atrial Rate : 067 BPM P-R Int : 158 ms QRS Dur : 100 ms QT Int : 406 ms P-R-T Axes : 007 -01 -07 degrees QTc Int : 429 ms Normal sinus rhythm Nonspecific T wave abnormality Abnormal ECG When compared with ECG of 20-NOV-2023 15:54, No significant change was found Referred By: Jose Bo Electronically Signed By:Adria Ochoa
[2023-11-24] MEDS: iohexoL 350 MG/ML 100 ML INFUS..BTL IV (14:16)
[2023-11-24 15:32] VITALS: BP 136/85; PULSE 63; RESP 20; TEMP 36.7; O2SAT 94
--- NOTE | 2023-11-24 15:55 | ED.GENADULT ---
HPI - General Adult General Chief complaint: Abdominal Pain Stated complaint: burning sensation in upper abd Time Seen by Provider: 11/24/23 13:08 Source: patient and family Mode of arrival: ambulatory Limitations: no limitations History of Present Illness ED Provider: DR. Bo HPI narrative: 63-year-old male history of HTN presented today after he had a period of slurred speech, diaphoretic, lightheadedness, and nausea symptoms lasted for about 5 minute then resolved patient came to the ED after complete resolution of his symptoms patient also felt some burning sensation left upper abdomen with the above symptoms. Now there is no weakness, no numbness, slurred speech, headache, no blurry vision. Related Data Home Medications ?Medication ?Instructions ?Recorded ?Confirmed aspirin 81 mg tablet,delayed 81 mg PO DAILY 09/06/23 release fluticasone propionate 50 1 spray intranasal DAILY 09/06/23 mcg/actuation nasal spray,suspension (Flonase Allergy Relief) ibuprofen 600 mg tablet (IBU) mg PO 09/06/23 loratadine 10 mg tablet (Allergy 10 mg PO DAILY 09/06/23 Relief (loratadine)) Previous Rx's ?Medication ?Instructions ?Recorded hydrochlorothiazide 25 mg tablet 25 mg PO DAILY 30 days #30 tabs 11/20/23 Allergies Allergy/AdvReac Type Severity Reaction Status Date / Time Seasonal Allergies Allergy Mild Sneezing Verified 11/24/23 12:56 Review of Systems Review of Systems: All other systems are reviewed and are negative Constitutional: Reports as per HPI and Reports no additional constitutional complaints Eyes: Reports as per HPI and Reports no additional eye complaints Reports system reviewed and no additional complaints, except as documented Cardiovascular: Reports as per HPI and Reports no additional cardiovascular complaints Respiratory: Reports as per HPI and Reports no additional respiratory complaints Gastrointestinal: Reports as per HPI and Reports no additional gastrointestinal complaints Genitourinary: Reports no additional female genitourinary complaints Musculoskeletal: Reports no additional musculoskeletal complaints Skin/Breast: Reports system reviewed and no additional complaints, except as docu Psychiatric: Reports no additional psychiatric complaints Endocrine: Reports no additional endocrine complaints Hematologic/Lymphatic: Reports no additional hematologic/lymphatic complaints Allergic/Immunologic: Reports no additional allergic/immunologic complaints Reports system reviewed and no additional complaints, except as documented and Reports Abnormal speech present [facility] Past Medical History Medical History Abnormal nuclear stress test Hypertension Back pain Social History Social History Alcohol intake: former Patient Tobacco Use Status: Former Tobacco user Advance Directives: No Do you have a plan to hurt others: No Plan Physical Exam ED Vital Signs: Vital Signs - 24 hr 11/24/23 12:53 11/24/23 15:32 Temperature 97.6 F 98.1 F Pulse Rate 80 63 Respiratory Rate 18 20 Blood Pressure 133/90 H 136/85 Pulse Oximetry 96 94 Oxygen Delivery Method Room Air Room Air BMI result Body Mass Index 32.0 Vital signs have been reviewed and appear to be correct. Blood pressure elevated. Heart rate normal. Respiratory rate normal. Temperature normal. Oxygen saturation normal. Appearance: Alert. Oriented X3. No acute distress. Head: Normal external exam. Normocephalic. Atraumatic. No [place]nelas signs noted. No raccoon eyes noted Eyes: PERRLA. EOMI. Conjunctiva and sclera normal. Eyelids normal. ENT: TM's Normal. Pharynx normal. Uvula midline. Moist mucous membranes. No trismus noted. No drooling noted. No muffled voice noted. Neck: Normal inspection. Neck supple. FROM. No adenopathy. Thyroid Normal. No meningeal signs. No neck mass noted. CVS: Normal heart rate and rhythm. Heart sound normal. No murmurs noted. Pulses normal throughout. Respiratory: No respiratory distress. Painless inspiration. Breath sounds normal. No wheezes/rales/rhonchi noted. Chest nontender. No accessory muscle usage noted or decreased air movement noted. Abdomen: Soft and nontender. Bowel sounds normal in all 4 quadrants. No distention noted. No organomegaly noted. No visible injury noted. Back: No CVA tenderness. Full range of motion noted. Skin: Skin warm and dry. Normal skin color. Normal skin turgor. No rashes/lesions/lacerations noted. Extremities: No lower extremity edema. Extremities exhibit normal range of motion. Extremities nontender. Neuro: Oriented X 3. Cranial nerve exam: II-XII are grossly intact No motor deficit. No sensory deficit. Reflexes normal. NIH Stroke Scale Internal: Initial- Upon Arrival Time: 15:58 Level of Consciousness: Alert Level of Consciousness Questions: Answers both questions correctly Level of Consciousness Commands: Performs both tasks correctly Best Gaze: Normal Visual: No visual loss Facial Palsy: Normal Motor Arm (Right): No drift Motor Arm (Left): No drift Motor Leg (Right): No drift Motor Leg (Left): No drift Limb Ataxia: Absent Sensory: Normal Best Language: No aphasia Dysarthia: Normal Extinction and Inattention: No abnormality Score: 0 Course Reevaluation(s) Reevaluation #1: Hypokalemia, TIA. Will replete potassium. Aspirin. Admit Time: 16:06 Medications Administered Discontinued Medications Generic Name Dose Route Start Last Admin Trade Name Freq PRN Reason Stop Dose Admin Iohexol 100 ml 11/24/23 14:16 11/24/23 14:16 Iohexol 350 Mg/Ml 100 Ml Infus..Btl IV 11/24/23 14:17 70 ml ONCE ONE Administration Medical Decision Making Differential Diagnosis Differential Diagnoses: The differential diagnosis associated with the presentation includes (CVA, intracranial bleed, TIA, electrolyte derangement, severe anemia, ACS.) Admission/Observation Consideration of admission/observation: Escalation of care including admission/observation considered Consult Healthcare Provider Management of the patient was discussed with: Hospitalist (Dr. Norwood) Lab Data MDM Lab Attestation statement: I reviewed the patient's lab results. 11/24/23 13:09 11/24/23 13:09 Labs: Lab Results 11/24/23 Range/Units 13:09 WBC 7.4 (4.8-10.8) X10*3/uL RBC 4.38 L (4.60-5.80) X10*6/uL Hgb 13.9 L (14.0-18.0) g/dl Hct 37.4 L (42.0-52.0) % MCV 85.4 (80.0-98.0) fL MCH 31.7 (27.0-33.0) pg MCHC 37.2 H (31.0-36.0) g/dl RDW 12.7 (11.0-16.0) % Plt Count 200 (160-400) X10*3/uL MPV 9.7 (9.4-12.4) fL Immature Gran % (Auto) 0.3 (0.0-0.4) % Neut % (Auto) 77.5 H (45-73) % Lymph % (Auto) 12.6 L (20-40) % [place] % (Auto) 8.0 (2-11) % Eos % (Auto) 1.2 (0-4) % Baso % (Auto) 0.4 (0-2) % Lymph # (Auto) 0.9 L (1.2-4.9) X10*3/uL [place] # (Auto) 0.6 (0.1-1.2) X10*3/uL Eos # (Auto) 0.1 (0.0-0.4) X10*3/uL Baso # (Auto) 0.0 (0.0-0.2) X10*3/uL Abs Immat Gran (auto) 0.02 (0.00-0.03) X10*3/uL Absolute Neuts (auto) 5.8 (2.0-8.3) x10*3/uL Absolute Nucleated RBC 0.000 (0.0-0.012) X10*3/uL Nucleated RBC % (auto) 0.0 (0.0-0.2) /100WBC Sodium 137 (135-145) mmol/L Potassium 2.9 L* (3.3-5.1) mmol/L Chloride 103 (96-108) mmol/L Carbon Dioxide 24 (22-29) mmol/L Anion Gap 13 (12-20) BUN 11 (9-16) mg/dL Creatinine 0.75 (0.5-1.4) mg/dL Estim Creat Clear Calc 123.3 Estimated GFR > 60 Random Glucose 129 H (60-115) mg/dL Calcium 9.4 (8.4-10.2) mg/dL Total Bilirubin 1.4 H (0.0-1.0) mg/dL AST 22 (5-37) U/L ALT 21 (0-40) U/L Alkaline Phosphatase 85 (39-117) U/L Total Protein 7.3 (6.5-8.0) g/dL Albumin 4.3 (3.5-5.0) g/dL Urine Color Yellow Urine Appearance Clear Urine pH 7.5 (5.0-9.0) Ur Specific [place] 1.010 (1.005-1.025) Urine Protein Negative (Neg-Trace) mg/dL Urine Glucose (UA) Negative (Negative) mg/dL Urine Ketones Negative (Negative) mg/dL Urine Blood Negative (Negative) Urine Nitrite Negative (Negative) Ur Leukocyte Esterase Negative (Negative) Independent Interpretation I performed an independent interpretation of an: CT Scan (1. No acute intracranial findings. 2. 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 3. 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
--- NOTE | 2023-11-24 15:58 | P.HPHOSP_ITS ---
History of Present Illness Date of Service: 11/24/23 Chief Complaint: dizzy 63M PMH htn, hld, presented with episode of lightheadedness. had similar episode on 11/20/23, left ama, cth then negative, orthostatics negative then. was feeling fine in between. on day of admission was at [facility], started to feel left upper quandrant burning, lightheadedness, flushing, difficulyt with word finding, no LOC. in ED CTA negative. symptoms resolved. Review of Systems 2 Review of Systems: Yes all other systems are reviewed and are negative [facility] Medical History Abnormal nuclear stress test Hypertension Back pain Social History Alcohol intake: former Patient Tobacco Use Status: Former Tobacco user Advance Directives: No Do you have a plan to hurt others: No Plan Meds Allergies Allergy/AdvReac Type Severity Reaction Status Date / Time Seasonal Allergies Allergy Mild Sneezing Verified 11/24/23 12:56 Home Medications ?Medication ?Instructions ?Recorded ?Confirmed ?Last Taken ?Type aspirin 81 mg tablet,delayed 81 mg PO DAILY 09/06/23 Unknown History release fluticasone propionate 50 1 spray intranasal DAILY 09/06/23 Unknown History mcg/actuation nasal spray,suspension (Flonase Allergy Relief) ibuprofen 600 mg tablet (IBU) mg PO 09/06/23 Unknown History loratadine 10 mg tablet (Allergy 10 mg PO DAILY 09/06/23 Unknown History Relief (loratadine)) Physical Exam 2 Vital Signs and Narrative: Vital Signs: Last Vital Signs Temp 98.1 F 11/24/23 15:32 Pulse 63 11/24/23 15:32 Resp 20 11/24/23 15:32 BP 136/85 11/24/23 15:32 Pulse Ox 94 11/24/23 15:32 O2 Del Method Room Air 11/24/23 15:32 BMI result Body Mass Index 32.0 General: AO X 3, no acute distress Resp: CTA bilateral, no accessory muscles used CVS: S1,S2,RRR GI: soft, non tender, non distended Neuro: motor grossly intact, alert Psych: appropriate affect, appropriate insight Results Labs 11/24/23 13:09 11/24/23 13:09 Labs: Laboratory Results - last 24 hr 11/24/23 13:09 MCV 85.4 MCH 31.7 MCHC 37.2 H RDW 12.7 Plt Count 200 MPV 9.7 Immature Gran % (Auto) 0.3 Neut % (Auto) 77.5 H Lymph % (Auto) 12.6 L [place] % (Auto) 8.0 Eos % (Auto) 1.2 Baso % (Auto) 0.4 Lymph # (Auto) 0.9 L [place] # (Auto) 0.6 Eos # (Auto) 0.1 Baso # (Auto) 0.0 Abs Immat Gran (auto) 0.02 Absolute Neuts (auto) 5.8 Absolute Nucleated RBC 0.000 Nucleated RBC % (auto) 0.0 Anion Gap 13 Estim Creat Clear Calc 123.3 Estimated GFR > 60 Random Glucose 129 H Calcium 9.4 Total Bilirubin 1.4 H AST 22 ALT 21 Alkaline Phosphatase 85 Total Protein 7.3 Albumin 4.3 Urine Color Yellow Urine Appearance Clear Urine pH 7.5 Ur Specific [place] 1.010 Urine Protein Negative Urine Glucose (UA) Negative Urine Ketones Negative Urine Blood Negative Urine Nitrite Negative Ur Leukocyte Esterase Negative Imaging Radiologist's Impressions: Impressions Head CT 11/24/23 13:45 IMPRESSION: No acute intracranial pathology. This critical result was discussed with Dr. Bo at 2:00 PM hours on 11/24/2023. It was ascertained that the content and urgency of the report was understood at the time of direct communication. Head/Neck CTA 11/24/23 14:17 IMPRESSION: 1. No acute intracranial findings. 2. 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 3. Dolichoectasia of the anterior circulation can be correlated clinically for underlying hypertension. This critical result was discussed with Deepthi HERNANDEZ at 2:50 PM on 11/24/2023 and it was ascertained that the content and urgency of the report was understood at the time of direct communication. Assessment and Plan (1) Hypertension: Status: Acute Plan 63M PMH htn, hld, presented with episode of lightheadedness Lightheadedness Likely vagal episode rule out TIA Aspirin, statin Check MRI, neuro eval Had recent echocardiogram 3 months ago Symptoms resolved no need for speech, PT, OT Follow-up lipids and A1c Gentle IV hydration Hypokalemia Replace and monitor Hypertension Will hold HCTZ Monitor recent abnormal stress test ekg normal, no chest pain, cardio eval DVT prophylaxis with Lovenox Full Code Quality Stroke Does the patient have a stroke diagnosis?: No VTE Prior VTE?: No VTE Risk Level:: Medical - moderate - high VTE Device Contraindication: Treatment Not Indicated VTE Drug Contraindication: N/A - Med Ordered
[2023-11-24] MEDS: Potassium Chloride Packet 20 MEQ PACKET 40 MEQ PO (16:15)
[2023-11-24] MEDS: 0.9 % Sodium Chloride 1,000 ML 50 ML IVCONT (16:15)
[2023-11-24] MEDS: Potassium Chloride/H20 10 MEQ/100 ML PIGGYBACK 100 MEQ IV (16:15)
[2023-11-24] MEDS: Aspirin Enteric Coated 81 MG TABLET.DR PO (16:15)
[2023-11-24 16:24] LABS: Troponin-I High Sensitivity < 2.7 ng/L (<3.5-35.0)
--- NOTE | 2023-11-24 17:39 | PHA.MEDREC ---
Addendum entered by Caroline Cruz RPh 11/24/23 18:06: med rec reviewed by mendez Original Note: Pharmacy Consult ? Medication Reconciliation Pharmacy has completed the medication reconciliation. spoke with patient to confirm medications.
[2023-11-24 18:00] VITALS: BP 145/81; PULSE 66; RESP 16; TEMP 36.5; O2SAT 97
--- NOTE | 2023-11-24 19:20 | PC.NURSE ---
This RN assumed pt care @ 1900. Pt sitting in bed resting. Pt ca&ox4, no signs of distress. Pt requested to be disconnected from IV, to use the restroom. Pt ambulated to the restroom with a steady gait. Plan of care ongoing.
[2023-11-24] MEDS: Atorvastatin Calcium 80 MG TABLET PO (22:00)
--- NOTE | 2023-11-24 22:07 | PC.NURSE ---
Pt medicated per jun. Plan of care ongoing.
[2023-11-24 22:22] VITALS: BP 132/80; PULSE 53; RESP 16; TEMP 36.7; O2SAT 96
[2023-11-25 01:35] VITALS: BMI 31.9
[2023-11-25 02:00] VITALS: BP 153/79; PULSE 57; RESP 20; TEMP 36.2; O2SAT 93
[2023-11-25 04:00] VITALS: BP 152/85; PULSE 57; RESP 20; TEMP 36.2; O2SAT 97
[2023-11-25 05:31] LABS: Estimated Average Glucose 108 mg/dL; Hemoglobin A1c % 5.4 % (<6.0)
[2023-11-25 07:25] VITALS: BP 137/79; PULSE 58; RESP 18; TEMP 36.2; O2SAT 98
[2023-11-25] MEDS: Multivitamin TABLET 1 TAB PO (08:44)
[2023-11-25] MEDS: Aspirin Enteric Coated 81 MG TABLET.DR PO (08:44)
[2023-11-25 08:59] LABS: Hematocrit 39.7 % (42.0-52.0); Hemoglobin 14.1 g/dl (14.0-18.0); Mean Corpuscular HGB Conc 35.5 g/dl (31.0-36.0); Mean Corpuscular Hemoglobin 31.5 pg (27.0-33.0); Mean Corpuscular Volume 88.6 fL (80.0-98.0); Platelet Count 173 X10*3/uL (160-400); Red Blood Count 4.48 X10*6/uL (4.60-5.80); Red Cell Distribution Width 13.1 % (11.0-16.0)
[2023-11-25 09:20] LABS: Anion Gap 12 (12-20); Blood Urea Nitrogen 8 mg/dL (9-16); Calcium 9.1 mg/dL (8.4-10.2); Carbon Dioxide 25 mmol/L (22-29); Chloride 108 mmol/L (96-108); Cholesterol 140 mg/dL (<200); Creatinine Clr Calc Pharmacy 139.8; Estimated Glomerular Filt Rate > 60; Glucose Fasting 100 mg/dL (60-99); HDL Cholesterol 50 mg/dL (>40); LDL Cholesterol Calculated 80 mg/dL (<100); Magnesium 2.1 mg/dL (1.6-2.6); Potassium 3.5 mmol/L (3.3-5.1); Sodium 141 mmol/L (135-145); Triglycerides 54 mg/dL (<150)
[2023-11-25 09:23] LABS: Troponin-I High Sensitivity 5.2 ng/L (<3.5-35.0)
--- NOTE | 2023-11-25 09:35 | MHC.CM.PN ---
Addendum entered by Adalgisa Little RN 11/25/23 12:16: Patient medically cleared for dc home self care. to transport. Original Note: Patient lives in a home w/ and adult son. Functionally independent. Denies use of DME or services. PCP Claire Marshall MD No HCP. CM provided education and offered assistance. Patient declined, but may consider completing at a later time. DP: Goal is home self care, do not anticipate the need for services. to transport. CM will continue to follow.
[2023-11-25] MEDS: 0.9 % Sodium Chloride 1,000 ML 50 ML IVCONT (11:12)
--- NOTE | 2023-11-25 12:08 | PM.CNCAR ---
History of Present Illness History of Present Illness Date of Service: 11/25/23 Requesting physician: Cain Norwood Chief complaint: Dizziness, presyncope Narrative: [age] year gentleman presenting for dizziness. In 09/10/2023 he had an episode while driving where he became dizzy and felt he may pass out. He had to wool puller. He had outpatient testing after that including stress test where he had a hypertensive response to exercise. No ECG changes were noticed. He subsequently had a coronary CTA performed which showed mild disease in the LAD and right coronary artery. Yesterday while at a bank he started having some left-sided sharp lower chest pain and started feeling very hot and flushed. He said he had trouble talking to the office cashier. He said Sunday he had a very similar episode 2 when he came to the hospital but then left AMA. He was admitted and ruled out. ECG showing sinus rhythm 67 beats per minute, normal axis, precordial nonspecific T-wave changes. QTC 429 milliseconds. He was hypokalemic on admission with potassium 2.9 which has been improved to 3.5 at this point. Normal kidney function. High sensitive troponin less than 2.7 and 5.2. With hydration he is feeling better at this point. He had a CTA which did not show any significant intracranial atherosclerotic disease. He is waiting for MRI results. [facility] Past Medical History Medical History Abnormal nuclear stress test Hypertension Back pain Social History Social History Household Members: Spouse and Children Housing: House Do you presently have visiting nurse or other home services: No Alcohol intake: former Patient Tobacco Use Status: Former Tobacco user Second Hand Smoke Exposure: No Meds Allergies Allergy/AdvReac Type Severity Reaction Status Date / Time Seasonal Allergies Allergy Mild Sneezing Verified 11/24/23 12:56 Active Medications: Current Medications Acetaminophen (Acetaminophen 325 Mg Tablet) 650 mg PO Q6H PRN PRN Reason: Pain, Mild (Pain Scale 1-3), fever or headache Aspirin (Aspirin Enteric Coated 81 Mg Tablet.) 81 mg PO DAILY [facility] Last Admin: 11/25/23 08:44 Dose: 81 mg Atorvastatin Calcium (Atorvastatin Calcium 80 Mg Tablet) 80 mg PO BEDTIME [facility] Last Admin: 11/24/23 22:00 Dose: 80 mg Calcium Carbonate (Calcium Carbonate 750 Mg Tab.Chew) 750 mg PO Q4H PRN PRN Reason: Heartburn Enoxaparin Sodium (Enoxaparin Sodium 40 Mg/0.4 Ml Syringe) 40 mg SUBCUT Q24H [facility] Last Admin: 11/25/23 08:45 Dose: Not Given Sodium Chloride (Ns) 1,000 mls @ 50 mls/hr IVCONT .Q20H [facility] Last Admin: 11/25/23 11:12 Dose: 50 mls/hr Loratadine (Loratadine 10 Mg Tablet) 10 mg PO DAILY PRN PRN Reason: Allergy Symptoms Magnesium Hydroxide (Milk Of Magnesia 30 Ml Oral.Susp) 30 ml PO DAILY PRN PRN Reason: Constipation Melatonin (Melatonin 3 Mg Tablet) 6 mg PO BEDTIME PRN PRN Reason: Insomnia Multivitamins/Vitamin C (Multivitamin Tablet) 1 tab PO DAILY [facility] Last Admin: 11/25/23 08:44 Dose: 1 tab Home Medications ?Medication ?Instructions ?Recorded ?Confirmed ?Last Taken ?Type aspirin 81 mg tablet,delayed 81 mg PO DAILY 09/06/23 11/24/23 11/24/23 History release fluticasone propionate 50 2 spray intranasal DAILY PRN 09/06/23 11/24/23 Unknown History mcg/actuation nasal Allergy Symptoms spray,suspension (Flonase Allergy Relief) loratadine 10 mg tablet (Allergy 10 mg PO DAILY PRN Allergy Symptoms 09/06/23 11/24/23 Unknown History Relief (loratadine)) atorvastatin 10 mg tablet 10 mg PO DAILY 11/24/23 11/24/23 11/23/23 History multivitamin 1 tab PO DAILY 11/24/23 11/24/23 Unknown History Physical Exam Vital Signs: Vital Signs: Last Vital Signs Temp 97.1 F 11/25/23 07:25 Pulse 58 11/25/23 07:25 Resp 18 11/25/23 07:25 BP 137/79 11/25/23 07:25 Pulse Ox 98 11/25/23 07:25 O2 Del Method Room Air 11/25/23 07:25 BMI result Body Mass Index 31.9 GENERAL APPEARANCE: in no acute distress, pleasant. NECK: no carotid bruit, no jugular venous distention. SKIN: no suspicious lesions, warm and dry. HEART: no murmurs, regular rate and rhythm. LUNGS: clear to auscultation bilaterally. ABDOMEN: soft, nontender. EXTREMITIES: no edema. PERIPHERAL PULSES: equal. NEUROLOGIC: No gross deficits, AAO X 3 Objective Labs and Meds 11/25/23 08:37 11/25/23 08:37 Lab results: Laboratory Results - last 24 hr 11/24/23 11/24/23 11/25/23 13:09 15:56 08:37 WBC 7.4 6.0 RBC 4.38 L 4.48 L Hgb 13.9 L 14.1 Hct 37.4 L 39.7 L MCV 85.4 88.6 MCH 31.7 31.5 MCHC 37.2 H 35.5 RDW 12.7 13.1 Plt Count 200 173 MPV 9.7 10.0 Immature Gran % (Auto) 0.3 Neut % (Auto) 77.5 H Lymph % (Auto) 12.6 L [place] % (Auto) 8.0 Eos % (Auto) 1.2 Baso % (Auto) 0.4 Lymph # (Auto) 0.9 L [place] # (Auto) 0.6 Eos # (Auto) 0.1 Baso # (Auto) 0.0 Abs Immat Gran (auto) 0.02 Absolute Neuts (auto) 5.8 Absolute Nucleated RBC 0.000 0.000 Nucleated RBC % (auto) 0.0 0.0 Sodium 137 141 Potassium 2.9 L* 3.5 D Chloride 103 108 Carbon Dioxide 24 25 Anion Gap 13 12 BUN 11 8 L Creatinine 0.75 0.66 Estim Creat Clear Calc 123.3 139.8 Estimated GFR > 60 > 60 Random Glucose 129 H Fasting Glucose 100 H Estimat Average Glucose 108 Hemoglobin A1c % 5.4 Calcium 9.4 9.1 Magnesium 2.1 Total Bilirubin 1.4 H AST 22 ALT 21 Alkaline Phosphatase 85 Troponin I High Sens < 2.7 5.2 D Total Protein 7.3 Albumin 4.3 Triglycerides 54 Cholesterol 140 LDL Cholesterol, Calc 80 HDL Cholesterol 50 Urine Color Yellow Urine Appearance Clear Urine pH 7.5 Ur Specific [place] 1.010 Urine Protein Negative Urine Glucose (UA) Negative Urine Ketones Negative Urine Blood Negative Urine Nitrite Negative Ur Leukocyte Esterase Negative Imaging Radiologist's impression: Impressions Head CT 11/24/23 13:45 IMPRESSION: No acute intracranial pathology. This critical result was discussed with Dr. Bo at 2:00 PM hours on 11/24/2023. It was ascertained that the content and urgency of the report was understood at the time of direct communication. Head/Neck CTA 11/24/23 14:17 IMPRESSION: 1. No acute intracranial findings. 2. 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 3. Dolichoectasia of the anterior circulation can be correlated clinically for underlying hypertension. This critical result was discussed with Deepthi HERNANDEZ at 2:50 PM on 11/24/2023 and it was ascertained that the content and urgency of the report was understood at the time of direct communication. Assessment and Plan (1) Dizziness: Status: Acute (2) Near syncope: Status: Inactive (3) Acute hypokalemia: Status: Acute Plan 63 year gentleman presenting for dizziness, hot/flushed feeling and nausea. Clinical story is suggestive of vasovagal event. He had similar event few days ago. He also had 1 episode in August 2023. He had coronary CTA performed which is showing mild coronary disease. He was hypokalemic on admission and is on a thiazide diuretic. Thiazide should be discontinued. Gentle hydration. Check orthostatic vital signs. If stable with ambulation and orthostatics are normal and brain MRI is not showing any stroke then can be discharged back home with further workup as outpatient. I have advised him to keep himself well hydrated and try to avoid hot environments as much as he can. Thank you for allowing me to participate in the care of your patient. Please feel free to contact me if you have any questions. Procedures Date of Service Date of Service: 11/25/23
--- NOTE | 2023-11-25 12:12 | PM.DS ---
DS: Providers Provider Date of Service: 11/25/23 Date of admission: 11/24/23 15:54 Primary care physician: Claire Marshall MD Consults: 11/24/23 15:53 Consult to Neurology Routine Consulting Provider: [facility] Reason for consultation: dizzy 11/24/23 16:05 Consult to Cardiology Routine Consulting Provider: [facility] Reason for consultation: vague left sided discomfort, recent abnormal stress test Has provider been notified: Yes DS: Diagnosis Discharge Diagnosis (1) Hypertension: Status: Acute DS: Summary Hospital Course Hospital Course: from initial hpi: 63M PMH htn, hld, presented with episode of lightheadedness. had similar episode on 11/20/23, left ama, cth then negative, orthostatics negative then. was feeling fine in between. on day of admission was at bank, started to feel left upper quandrant burning, lightheadedness, flushing, difficulyt with word finding, no LOC. in ED CTA negative. symptoms resolved. hospital course: Patient was observed patient was monitored for lightheadedness. This was likely vasovagal episode. MRI was negative for CVA. Given recent abnormal stress test was seen by Cardiology who felt this was unrelated. Patient can continue aspirin statin for nonobstructive CAD seen on CT scan. For hypokalemia received replacement. We will continue to hold hydrochlorothiazide. Should continue to monitor blood pressure and if needed to restart med of a different class for hypertension should follow up with PCP. Time Attestation Discharge Coordination Time (in mins): 34 Quality: Safe Use of Opioids Does Pt have an Active Cancer Diagnosis on the Problem List?: No Quality: Stroke Does the patient have a stroke diagnosis?: No Physical Exam Vital Signs: Vital Signs: Last Vital Signs Temp 97.1 F 11/25/23 07:25 Pulse 58 11/25/23 07:25 Resp 18 11/25/23 07:25 BP 137/79 11/25/23 07:25 Pulse Ox 98 11/25/23 07:25 O2 Del Method Room Air 11/25/23 07:25 BMI result Body Mass Index 31.9 General: AO X 3, no acute distress Resp: CTA bilateral, no accessory muscles used CVS: S1,S2,RRR GI: soft, non tender, non distended Neuro: motor grossly intact, alert Psych: appropriate affect, appropriate insight DS: Data Data Completed and Pending Labs on day of discharge: Laboratory Results - last 24 hr 11/24/23 11/24/23 11/25/23 13:09 15:56 08:37 WBC 7.4 6.0 RBC 4.38 L 4.48 L Hgb 13.9 L 14.1 Hct 37.4 L 39.7 L MCV 85.4 88.6 MCH 31.7 31.5 MCHC 37.2 H 35.5 RDW 12.7 13.1 Plt Count 200 173 MPV 9.7 10.0 Immature Gran % (Auto) 0.3 Neut % (Auto) 77.5 H Lymph % (Auto) 12.6 L [place] % (Auto) 8.0 Eos % (Auto) 1.2 Baso % (Auto) 0.4 Lymph # (Auto) 0.9 L [place] # (Auto) 0.6 Eos # (Auto) 0.1 Baso # (Auto) 0.0 Abs Immat Gran (auto) 0.02 Absolute Neuts (auto) 5.8 Absolute Nucleated RBC 0.000 0.000 Nucleated RBC % (auto) 0.0 0.0 Sodium 137 141 Potassium 2.9 L* 3.5 D Chloride 103 108 Carbon Dioxide 24 25 Anion Gap 13 12 BUN 11 8 L Creatinine 0.75 0.66 Estim Creat Clear Calc 123.3 139.8 Estimated GFR > 60 > 60 Random Glucose 129 H Fasting Glucose 100 H Estimat Average Glucose 108 Hemoglobin A1c % 5.4 Calcium 9.4 9.1 Magnesium 2.1 Total Bilirubin 1.4 H AST 22 ALT 21 Alkaline Phosphatase 85 Troponin I High Sens < 2.7 5.2 D Total Protein 7.3 Albumin 4.3 Triglycerides 54 Cholesterol 140 LDL Cholesterol, Calc 80 HDL Cholesterol 50 Urine Color Yellow Urine Appearance Clear Urine pH 7.5 Ur Specific [place] 1.010 Urine Protein Negative Urine Glucose (UA) Negative Urine Ketones Negative Urine Blood Negative Urine Nitrite Negative Ur Leukocyte Esterase Negative Discharge Plan Discharge Anticipated Discharge Date/Time: 11/25/23 12:11 Patient Disposition: Home, Self-Care Discharge Diagnosis: vasovagal Referrals: Claire Marshall MD [Primary Care Provider] - 1 Week Discharge Medications: Continued multivitamin Tablet 1 tab PO DAILY atorvastatin 10 mg tablet 10 mg PO DAILY aspirin 81 mg tablet,delayed release (DR/EC) 81 mg PO DAILY fluticasone propionate [Flonase Allergy Relief] 50 mcg/actuation spray,suspension 2 spray intranasal DAILY PRN (Reason: Allergy Symptoms) Rx Instructions: administer into each nostril loratadine [Allergy Relief (loratadine)] 10 mg tablet 10 mg PO DAILY PRN (Reason: Allergy Symptoms) Discontinued hydrochlorothiazide 25 mg tablet 25 mg PO DAILY 30 Days Qty: 30 3RF Discharge Orders: Discharge Order (Routine); Ordered 11/25/23 Ordered By: Cain Norwood Diet: Advance to usual diet Activity on Discharge: As tolerated Stand Alone Forms: Patient Portal Discharge page Print Language: Maldivian Care Plan Goals: avoid episodes Health Concerns: vasovagal Plan of Treatment: stop hctz, keep hydrated during hot weather, monitor bp and consider starting different bp med if needed Assessment: see above
== END 2023-11-25 12:58 | disposition home or self-care (01) | DRG 204 ==
LOC: HO.ED 16:07 → HO.EDOVER 16:10 → HO.S3 11-25
PROVIDERS: Admitting Provider Internal Medicine; Emergency Provider Emergency Medicine; PCP Internal Medicine; Visit Provider Internal Medicine
DX: R55 Syncope and collapse (principal); E87.6 Hypokalemia; I10 Essential (primary) hypertension; I25.10 Atherosclerotic heart disease of native coronary artery without angina pectoris; R94.39 Abnormal result of other cardiovascular function study; Z79.51 Long term (current) use of inhaled steroids; Z87.891 Personal history of nicotine dependence; Z79.82 Long term (current) use of aspirin; Z79.899 Other long term (current) drug therapy
CPT/HCPCS: 36415; 70450; 70496; 70498; 70551; 80048; 80053; 80061; 81003; 83036; 83735; 84484; 85025; 85027; 93005; 99221; 99285; J3480; Q9967

== ENCOUNTER → 2023-11-24 13:28 | Outpatient (BNV) | payer OTHER, SELFPAY | PROVIDERS: Emergency Provider Emergency Medicine; PCP Internal Medicine; Visit Provider Internal Medicine | DX: I10 Essential (primary) hypertension (principal) | CPT/HCPCS: 99222; 99239 ==

== ENCOUNTER → 2023-11-24 15:54 | Outpatient (BNV) | payer OTHER, SELFPAY | PROVIDERS: Admitting Provider Internal Medicine; Emergency Provider Emergency Medicine; PCP Internal Medicine; Visit Provider Internal Medicine Cardiovascular Disease | DX: R94.31 Abnormal electrocardiogram [ECG] [EKG] (principal) | CPT/HCPCS: 93010; 99223 ==

== ENCOUNTER 2023-11-27 14:48 | Outpatient (AMB) | payer OTHER, SELFPAY ==
--- NOTE | 2023-11-27 15:29 | MHC.OFFVIS ---
Vital Signs 11/27/23 15:30 Height 5 ft 10 in Weight 224 lb 6.889 oz BMI 32.2 BP 130/80 Blood Pressure Location Rt brachial Position Sitting Pulse 62 Pulse Source Pulse Oximeter Intake Visit Reasons: follow up CTA Hammer Adjuster Required: No Accompanied by: Self / Same As Patient Allergies Seasonal Allergies Allergy (Mild, Verified 11/24/23 12:56) Sneezing HPI Comments Details: 63-year-old male presents today for a follow-up. He was driving in his car back in August and he suddenly felt a tingling sensation in his head. He reports this is the only time this has happened. Then on 11/20/23 he was at the bank doing a transaction and suddenly felt hot and nauseous and felt as if he was going to pass out. He had left AMA. he then returned 11/24/23 for abdominal discomfort and was found to be hypokalemic and having a TIA. His HCTZ was discontinued. He had some palpitations many years ago when he smoked and drank a lot of caffeine. He reports his blood pressures have varied at home from 130s-190s, but he notes his cuff is very old. He no longer smokes. [facility] Medical History Abnormal nuclear stress test Hypertension Back pain Social History Household Members: Spouse and Children Housing: House Do you presently have visiting nurse or other home services: No Alcohol intake: former Patient Tobacco Use Status: Former Tobacco user Second Hand Smoke Exposure: No Review of Systems Const Denies chills, Denies fatigue, Denies fever(s), Denies frequent falls, Denies weakness, Denies weight gain and Denies weight loss ENT Denies dizziness Card Denies chest pain, Denies leg edema, Denies lightheadedness, Denies palpitations, Denies dyspnea and Denies dyspnea on exertion Resp Denies cough, Denies dyspnea and Denies dyspnea on exertion GI Denies hematochezia Musc Denies abnormal gait, Denies muscle weakness, Denies numbness, Denies radiating pain into limb and Denies tingling Neuro Denies abnormal gait, Denies dizziness, Denies frequent falls, Denies numbness, Denies tingling and Denies weakness Endo Denies fatigue and Denies palpitations Physical Exam Vital Signs: Last Vital Signs Pulse 62 11/27/23 15:30 BP 130/80 11/27/23 15:30 BMI result Body Mass Index 32.2 Assessment & Plan Assessment & Plan (1) Dizziness: Code(s): R42 - Dizziness and giddiness Category: Medical (2) Brain TIA: Code(s): G45.9 - Transient cerebral ischemic attack, unspecified Category: Medical (3) Abnormal nuclear stress test: Comment: 10/29/2023 mpression: 1. Mild intensity apical ischemia 2. Gated LVEF is 55% 3. Transient ischemic dilatation not present Code(s): R94.39 - Abnormal result of other cardiovascular function study Category: Medical (4) Acute hypokalemia: Code(s): E87.6 - Hypokalemia Category: Medical Plan Mild CAD seen on CTA. He is due to see new PCP tomorrow. If no labs performed then will order labs to ensure potassium is still within nromal limits. He has stopped HCTZ and i will have him start amlodipine due to HTN response during stress test and high readings at home. Borderline blood pressure today. Will add holter to assess for arrhythmias due to TIA. Last LDL 80 on 11/24. Is on atorvastatin 10mg. Potassium levels 11/12/243.3. /07/14 2.9. 11/25/23 3.5 Orders: Orders ECG 3 day holter monitor Today R42 - Dizziness and giddiness Medications: New amlodipine (Norvasc) 5 mg PO DAILY 30 tabs 6RF Coding Level of Care Code Est Pt Level 4 (03769) Diagnoses Dizziness R42 Brain TIA G45.9 Abnormal nuclear stress test R94.39 Acute hypokalemia E87.6
[2023-11-27 15:30] VITALS: BP 130/80; PULSE 62; BMI 32.2
== END 2023-11-27 15:59 | disposition home or self-care (01) ==
PROVIDERS: PCP Internal Medicine; Visit Provider Nurse Practitioner
DX: R42 Dizziness and giddiness (principal); G45.9 Transient cerebral ischemic attack, unspecified; R94.39 Abnormal result of other cardiovascular function study; E87.6 Hypokalemia
CPT/HCPCS: 99214

== ENCOUNTER → 2023-11-27 14:48 | Outpatient (BNVA) | payer OTHER, SELFPAY | PROVIDERS: PCP Internal Medicine; Visit Provider Nurse Practitioner | DX: R42 Dizziness and giddiness (principal); E87.6 Hypokalemia; R94.39 Abnormal result of other cardiovascular function study; Z86.73 Personal history of transient ischemic attack (TIA), and cerebral infarction without residual deficits ==

== ENCOUNTER → 2023-11-30 14:31 | Outpatient (REF) | payer OTHER, SELFPAY ==
--- NOTE | 2023-11-30 14:33 | HM_ITS ---
* Total monitoring time 3 days. * Underlying rhythm is sinus with an average rate of 65/Min. * Evidence of intermittent right bundle-branch block morphology with underlying sinus rhythm; possibly rate related. * Otherwise, no significant ectopy, rmea or tachyarrhythmias. * No significant pauses or AV blocks. * No patient markers or diary events. MTDD
== END ==
LOC: HO.CARD 14:31
PROVIDERS: PCP Internal Medicine; Visit Provider Nurse Practitioner
DX: R42 Dizziness and giddiness (principal)
CPT/HCPCS: 93242

== ENCOUNTER → 2023-11-30 14:33 | Outpatient (BNV) | payer OTHER, SELFPAY | PROVIDERS: PCP Internal Medicine; Visit Provider Internal Medicine | DX: I45.10 Unspecified right bundle-branch block (principal) | CPT/HCPCS: 93244 ==

== ENCOUNTER 2024-04-07 13:45 | Outpatient (AMB) | payer OTHER, SELFPAY ==
[2024-04-07 14:05] VITALS: BP 120/70; PULSE 66; BMI 33.7
--- NOTE | 2024-04-07 14:05 | MHC.OFFVIS ---
Vital Signs 04/07/24 14:05 Height 5 ft 10 in Weight 234 lb 9.149 oz BMI 33.7 BP 120/70 Blood Pressure Location Lt brachial Position Sitting Pulse 66 Pulse Source Pulse Oximeter Intake Visit Reasons: 3 mth f/up Intake Note: 3 mth f/up/holter Statistics Tutor Required: No Accompanied by: Self / Same As Patient Allergies Seasonal Allergies Allergy (Mild, Verified 11/24/23 12:56) Sneezing Medication List - Last Reconciled 04/07/24 by dAria Ochoa MD amlodipine (Norvasc) 5 mg PO DAILY aspirin 81 mg PO DAILY atorvastatin 10 mg PO DAILY fluticasone propionate 50 mcg/actuation (Flonase Allergy Relief) 2 sprays intranasal DAILY PRN loratadine (Allergy Relief (loratadine)) 10 mg PO DAILY PRN HPI Comments Details: 63-year-old gentleman who was being followed by Kimberly. He recently was in the hospital when he came with vasovagal syncope. He was hypokalemic at that time and was recently started on hydrochlorothiazide. HCTZ was discontinued and he was discharged home on amlodipine 5 mg daily and blood pressure has been stable since then. He had Holter monitor which did not show any significant arrhythmia but did have some intermittent right bundle-branch block. He previously had coronary CTA which just showed mild disease and no significant coronary artery disease were noted. He he is denying any chest pain or shortness of breath. No significant dizziness or syncopal episodes. He was advised to keep himself well hydrated. [facility] Medical History Abnormal nuclear stress test Hypertension Back pain Social History Household Members: Spouse and Children Housing: House Do you presently have visiting nurse or other home services: No Alcohol intake: former Patient Tobacco Use Status: Former Tobacco user Second Hand Smoke Exposure: No Review of Systems Const Denies chills, Denies fatigue, Denies fever(s), Denies frequent falls, Denies weakness, Denies weight gain and Denies weight loss ENT Denies dizziness Card Denies chest pain, Denies leg edema, Denies lightheadedness, Denies palpitations, Denies dyspnea and Denies dyspnea on exertion Resp Denies cough, Denies dyspnea and Denies dyspnea on exertion GI Denies hematochezia Musc Denies abnormal gait, Denies muscle weakness, Denies numbness, Denies radiating pain into limb and Denies tingling Neuro Denies abnormal gait, Denies dizziness, Denies frequent falls, Denies numbness, Denies tingling and Denies weakness Endo Denies fatigue and Denies palpitations Physical Exam Vital Signs: Last Vital Signs Pulse 66 04/07/24 14:05 BP 120/70 04/07/24 14:05 BMI result Body Mass Index 33.7 GENERAL APPEARANCE: in no acute distress, pleasant. NECK: no carotid bruit, no jugular venous distention. SKIN: no suspicious lesions, warm and dry. HEART: no murmurs, regular rate and rhythm. LUNGS: clear to auscultation bilaterally. ABDOMEN: soft, nontender. EXTREMITIES: no edema. PERIPHERAL PULSES: equal. NEUROLOGIC: No gross deficits, AAO X 3 Assessment & Plan Assessment & Plan (1) Acute hypokalemia: Code(s): E87.6 - Hypokalemia Category: Medical (2) Dizziness: Code(s): R42 - Dizziness and giddiness Category: Medical Plan 63-year-old gentleman who is here for follow-up. He was seen in the hospital in November 2023 when he presented to vasovagal syncope. He was advised to hydrate himself. He was hypokalemic and potassium was repleted and hydrochlorothiazide was discontinued. Blood pressure is better with amlodipine 5 mg daily. Given significant hypokalemia with hydrochlorothiazide, I am referring him to Endocrinology for workup for hyperaldosteronism. Overall clinically stable. He was advised to keep himself well hydrated. He will see us back in 1 year. Thank you for allowing me to participate in the care of your patient. Please feel free to contact me if you have any questions. Orders: Referrals Endocrinology Referral E87.6 - Hypokalemia Coding Level of Care Code Est Pt Level 4 (12199) Diagnoses Acute hypokalemia E87.6 Dizziness R42
== END 2024-04-07 14:37 | disposition home or self-care (01) ==
PROVIDERS: PCP Internal Medicine; Visit Provider Internal Medicine Cardiovascular Disease
DX: E87.6 Hypokalemia (principal); R42 Dizziness and giddiness
CPT/HCPCS: 99214

== ENCOUNTER → 2024-04-07 13:45 | Outpatient (BNVA) | payer OTHER, SELFPAY | PROVIDERS: PCP Internal Medicine; Visit Provider Internal Medicine Cardiovascular Disease ==

== ENCOUNTER 2024-04-22 10:48 | Outpatient (AMB) | payer OTHER, SELFPAY ==
--- NOTE | 2024-04-22 10:48 | A.OFFVIS_ITS ---
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 HTN diagnosed this year in 2023 Was started on HCTZ 25 mg daily summertime 2023 when he was diagnosed with HTN Subsequently developed hypokalemia in November 2023 and had to go to ER with potassium of 2.9 Now on amlodipine 5 mg daily BP today 118/82 Family history : cousin in 60s from shoveling snow (ID?) No history of ID or stroke Has non obstructive CAD , he is on aspirin No history of atrial fibrillation Does snore when sleep at night, no feeling of unrefreshed sleep, snoozes off while having conversation but no known history of sleep apnea No episodes of diaphoresis, palpitations, pallor, GI symptoms Quit smoking in the 90s No alcohol since 20 years No drug use 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 surgical 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 Right arthroscopy Past medical history HTN HLD CAD Physical exam General: sitting comfortably in no acute distress HEENT: normocephalic/atraumatic, moist oral mucosa Neck: supple, no dorsocervical or supraclavicular fat pads Cardiac: normal heart sounds Pulm: normal breath sounds B/L, no added breath sounds Abd: not distended, no tenderness Extremities: no edema, no signs of myxedema Laboratory Tests 11/20/23 11/24/23 11/25/23 16:04 13:09 08:37 Potassium 3.3 2.9 L* 3.5 D Creatinine 0.75 0.66 Estimated GFR > 60 > 60 PFSH Medical History (Updated 04/22/24 @ 11:21 by Roslyn Miramontes MD) 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 Father No problems noted. Social History Household Members: Spouse and Children Housing: House Do you presently have visiting nurse or other home services: No Alcohol intake: former Patient Tobacco Use Status: Former Tobacco user Second Hand Smoke Exposure: No Physical Exam Vital Signs: Last Vital Signs Pulse 60 04/22/24 10:51 BP 118/82 04/22/24 10:51 BMI result Body Mass Index 31.6 Assessment & Plan Assessment & Plan (1) Hypertension: Code(s): I10 - Essential (primary) hypertension Category: Medical Qualifiers: Hypertension type: primary hypertension Qualified Code(s): I10 - Essential (primary) hypertension Plan: 63-year-old male with a history of hypertension diagnosed in summer 2023 who developed hypokalemia on hydrochlorothiazide, subsequently hydrochlorothiazide stopped and now hypertension is well-controlled on amlodipine 5 mg daily. Given history of hypokalemia, reasonable to check him for primary hyperaldosteronism. No features of Casey's syndrome to suspect hypercortisolism. No acromegalic features. No signs or symptoms of adrenergic excess to suspect pheochromocytoma. 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
[2024-04-22 10:51] VITALS: BP 118/82; PULSE 60; BMI 31.6
== END 2024-04-22 11:15 | disposition home or self-care (01) ==
PROVIDERS: PCP Internal Medicine; Visit Provider Student in an Organized Health Care Education/Training Program
DX: I10 Essential (primary) hypertension (principal); E87.6 Hypokalemia
CPT/HCPCS: 99204

== ENCOUNTER 2024-04-22 10:48 | Outpatient (REF) | payer OTHER, SELFPAY ==
[2024-04-22 12:14] LABS: Anion Gap 10 (12-20); Blood Urea Nitrogen 13 mg/dL (9-16); Calcium 9.2 mg/dL (8.4-10.2); Carbon Dioxide 30 mmol/L (22-29); Chloride 107 mmol/L (96-108); Estimated Glomerular Filt Rate > 60; Glucose Random 90 mg/dL (60-115); Potassium 4.4 mmol/L (3.3-5.1); Sodium 143 mmol/L (135-145)
[2024-04-27 11:44] LABS: Renin 0.71 ng/mL/h (0.25-5.82)
== END 2024-04-22 10:49 | disposition home or self-care (01) ==
LOC: HO.LAB 10:48
PROVIDERS: PCP Internal Medicine; Visit Provider Student in an Organized Health Care Education/Training Program
DX: I10 Essential (primary) hypertension (principal); E87.6 Hypokalemia
CPT/HCPCS: 36415; 80048; 82088; 84244

== ENCOUNTER 2024-05-05 09:30 | Outpatient (REF) | payer OTHER, SELFPAY ==
[2024-05-05 10:55] LABS: Anion Gap 9 (12-20); Blood Urea Nitrogen 11 mg/dL (9-16); Calcium 8.7 mg/dL (8.4-10.2); Carbon Dioxide 26 mmol/L (22-29); Chloride 110 mmol/L (96-108); Estimated Glomerular Filt Rate > 60; Glucose Random 85 mg/dL (60-115); Potassium 3.8 mmol/L (3.3-5.1); Sodium 141 mmol/L (135-145)
[2024-05-05 11:56] LABS: Creatinine, mg/dL 47.51; Creatinine, mg/dL 48.01
[2024-05-05 12:04] LABS: Creatinine, 24Hr Urine 1.4 G/Day (1.0-2.0); Total Volume 24 Hour Urine 3000 mL
[2024-05-16 08:03] LABS: Aldosterone, 24Hr Urine 5.4 mcg/24 h; Creatinine 24Hr Urine 1.59 g/24 h (0.50-2.15); Total Volume 3000 mL
== END 2024-05-05 09:31 | disposition home or self-care (01) ==
LOC: HO.LAB 09:30
PROVIDERS: PCP Internal Medicine; Visit Provider Student in an Organized Health Care Education/Training Program
DX: E87.6 Hypokalemia (principal); I10 Essential (primary) hypertension
CPT/HCPCS: 36415; 80048; 82088; 82570; 84300

== ENCOUNTER 2024-05-13 09:28 | Outpatient (AMB) | payer OTHER, SELFPAY ==
--- NOTE | 2024-05-13 09:31 | MHC.OFFVIS ---
Vital Signs 05/13/24 09:41 Height 5 ft 10 in Weight 219 lb 2.232 oz BMI 31.4 BP 100/72 Blood Pressure Location Lt brachial Position Sitting Pulse 57 Pulse Source Pulse Oximeter Intake Visit Reasons: Hypokalemia Intake Note: Patient present today for Hypokalemia office visit. [employer] Required: No Accompanied by: Self / Same As Patient Allergies Seasonal Allergies Allergy (Mild, Verified 05/13/24 09:50) Sneezing HPI Comments Details: 63-year-old male coming in today for follow up of secondary causes of hypertension in the setting of hypokalemia. HPI from initial visit HTN diagnosed in 2023 Was started on HCTZ 25 mg daily summertime 2023 when he was diagnosed with HTN Subsequently developed hypokalemia in November 2023 and had to go to ER with potassium of 2.9 Now on amlodipine 5 mg daily BP today 118/82 Family history : cousin in 60s from shoveling snow (DC?) No history of DC or stroke Has non obstructive CAD , he is on aspirin No history of atrial fibrillation Does snore when sleep at night, no feeling of unrefreshed sleep, snoozes off while having conversation but no known history of sleep apnea No episodes of diaphoresis, palpitations, pallor, GI symptoms Interval history Labs from 04/22/2024 showed suppressed renin of 0.71, aldosterone of 8. While he did not exactly need case detection criteria, given his renin was suppressed, and and we have to think about hyperaldosteronism as if it is on the spectrum rather than exact cut offs,, we proceeded with 24 hour urine testing with sodium loading. Results are pending. 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 Past medical history HTN HLD CAD Physical exam General: sitting comfortably in no acute distress HEENT: normocephalic/atraumatic, moist oral mucosa Neck: supple, no dorsocervical or supraclavicular fat pads Cardiac: normal heart sounds Pulm: normal breath sounds B/L, no added breath sounds Abd: not distended, no tenderness Extremities: no edema, no signs of myxedema Laboratory Tests 11/20/23 11/24/23 11/25/23 16:04 13:09 08:37 Potassium 3.3 2.9 L* 3.5 D Creatinine 0.75 0.66 Estimated GFR > 60 > 60 Laboratory Tests 04/22/24 05/05/24 05/05/24 11:32 06:00 09:43 Sodium 143 141 Potassium 4.4 D 3.8 Renin 0.71 Aldosterone 8 Ur 24 Hour Volume 3000 Ur Creatinine mg/dL 47.51 Ur Creatinine 24 Hour 1.4 Ur Sodium 24 Hour 246.0 H [facility] Medical History (Updated 04/22/24 @ 11:21 by Roslyn Miramontes MD) 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 Father No problems noted. Social History Household Members: Spouse and Children Housing: House Do you presently have visiting nurse or other home services: No Alcohol intake: former Patient Tobacco Use Status: Former Tobacco user Second Hand Smoke Exposure: No Physical Exam Vital Signs: Last Vital Signs Pulse 57 05/13/24 09:41 BP 100/72 05/13/24 09:41 BMI result Body Mass Index 31.4 Assessment & Plan Assessment & Plan (1) Hypertension: Code(s): I10 - Essential (primary) hypertension Category: Medical Qualifiers: Hypertension type: primary hypertension Qualified Code(s): I10 - Essential (primary) hypertension Plan: 63-year-old male with a history of hypertension diagnosed in summer 2023 who developed hypokalemia on hydrochlorothiazide, subsequently hydrochlorothiazide stopped and now hypertension is well-controlled on amlodipine 5 mg daily. BP today within normal range. Given history of hypokalemia, reasonable to check him for primary hyperaldosteronism. No features of Wallace's syndrome to suspect hypercortisolism. No acromegalic features. No signs or symptoms of adrenergic excess to suspect pheochromocytoma. Labs from 04/22/2024 showed suppressed renin of 0.71, aldosterone of 8. While he did not exactly need case detection criteria, given his renin was suppressed, and and we have to think about hyperaldosteronism as if it is on the spectrum rather than exact cut offs,, we proceeded with 24 hour urine testing with sodium loading. Results are pending. I explained to him that if his results are concerning for hyperaldosteronism, we will have him come back for follow up in 4 weeks, if results are normal, we will let him know and then he does not need further follow up with us. Plan: -we will plan for follow up in 4 weeks to discuss 24 hour urine results if they are abnormal, if results come back normal I will have him cancel his appointment in 4 weeks. 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
[2024-05-13 09:41] VITALS: BP 100/72; PULSE 57; BMI 31.4
--- OUTSIDE RECORDS SUMMARY | 2024-05-13 10:22 | XMS_ITS | Encounter Summary ---
Author Organization [facility] Address [address] [place] [address] Care Team Providers Care Sprinkler Helper Name Role Phone Claire Marshall MD Primary Care Provider [phone] Reason for Visit * Reason Comments Annual Exam Encounter Details Date Type Department Care Team (Late Contact Info) Description 05/06/2024 9:00 AM EST Office Visit [address] [phone] Claire Marshall MD [address] [place] [address] Left without seen Social History Tobacco Use Types Packs/Day Years Used Date Smoking Tobacco: Former Smokeless Tobacco: Never Alcohol Use Standard Drinks/Week Comments Yes 0 (1 standard drink = 0.6 oz pur e alcohol) Sex and Gender Information Value Date Recorded Sex Assigned at Not on file Gender Identity Not on file Sexual Orientation Not on file Job Start Date Occupation Industry Not on file Not on file Not on file documented as of this encounter Plan of Treatment Upcoming Encounters Date Type Department Care Team (Late Contact Info) Description 11/05/2024 9:30 AM EDT Office Visit Orthopedic Surgery - [place] [address] [facility] [address] [place] [id number] Trace Russo MD 175 [facility] [address] [place] [address] 11/17/2024 4:00 PM EDT Office Visit Adult [address] [phone] Claire Marshall MD [address] [place] [address] documented as of this encounter Visit Diagnoses Not on filedocumented in this encounter Care Teams Sprinkler Helper Relationship Specialty Start Date End Date Claire Marshall MD [address] [place] [address] PCP - General 02/20/1999 documented as of this encounter
--- OUTSIDE RECORDS SUMMARY | 2024-05-13 10:22 | XMS_ITS | Clinical Summary ---
Author Organization [facility] [address] [place] [address] [place] [phone] Phone Care Team Providers Care Director Of Outreach Name Role Phone Claire Marshall MD Primary Care Provider [phone] Allergies Active Allergy Reactions Criticality Noted Date Comments Pollen Extracts 10/13/2015 Seasonal Allergies Medications Medication Sig Dispensed Refills Start Date End Date Status loratadine 10 mg capsule Take 10 mg by mouth 1 (one) time each day if needed. Active fluticasone propionate (FLONASE) 50 mcg/actuation nasal spray Administer 2 sprays into each nostril 1 (one) time each day. 10/06/2021 Active aspirin 81 mg EC tablet Take 1 tablet (81 mg total) by mouth 1 (one) time each day. 02/20/2024 Active atorvastatin (LIPITOR) 10 mg tablet Take 1 tablet (10 mg total) by mouth 1 (one) time each day. 11/22/2023 Active amLODIPine (NORVASC) 5 mg tablet Take 1 tablet (5 mg total) by mouth 1 (one) time each day. Active ibuprofen (ADVIL,MOTRIN) 600 mg tablet Take 1 tablet (600 mg total) by mouth every 8 (eight) hours if needed (joint pain). 90 tablet 05/12/2024 08/10/2024 Active ibuprofen (ADVIL,MOTRIN) 600 mg tablet Take 1 tablet (600 mg total) by mouth every 8 (eight) hours if needed. 06/21/2023 05/12/2024 Discontinued (Reorder) Active Problems Problem Noted Date Diagnosed Date Low back pain without sciatica 05/12/2024 Severe obesity (BMI 35.0-35.9 with comorbidity) 03/14/2024 Hyperlipidemia 09/27/2023 Chronic right shoulder pain 12/27/2021 Wheezing 06/03/2018 Abnormal x-ray 12/30/2012 Overview (06/28/2023): lytic leision left humerus, followed by heme/onc, benign, 06/25/2014, 08/04/2011 and 07/08/2011. There is minimal endosteal scalloping of the anterior and lateral mid humeral cortex, unchanged compared to 01/2016. 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 Encounters Date Type Department Care Team Description 05/12/2024 11:00 AM EST Office Visit [address] [phone] Claire Marshall MD Routine general medical examination at a health care facility (Primary Dx); Low back pain without sciatica, unspecified back pain laterality, unspecified chronicity; Adrenal tumor; Obesity (BMI 30-39.9) 05/06/2024 9:00 AM EST Office Visit [address] [phone] Claire Marshall MD Left without seen 04/01/2024 Nurse Triage [address] [phone] Claire Marshall MD Coughing Up Blood 03/31/2024 3:15 PM EST Office Visit [address] [phone] Carlos Hughes NP Left otitis media, unspecified otitis media type (Primary Dx); Upper respiratory tract infection, unspecified type from Last 3 Months Immunizations Name Administration Dates Next Due Influenza Quadravalent, MDCK , 0.5ml, preservative free (Flucelvax) 6mo and older 12/27/2021,04/18/2021 Influenza trivalent, with pr eservative (Fluzone; Afluria) 6mo and older 01/26/2014,01/19/2013 Moderna SARS-CoV-2 COVID-19, mRNA, LNP-S, preservative free 08/02/2020,07/05/2020 Tdap Tetanus diptheria acell ular pertussis (Boostrix; Adacel) 7yo and older 08/12/2021,07/18/2011 Surgical History Surgery Date Site/Laterality Comments COLONOSCOPY 09/10/14 PROCEDURE: HISTORICAL COLONOSCOPY; COMMENT: hemorrhoids; repeat in 10 yrs Medical History Medical History Date Comments Abnormal x-ray 12/30/2012 DX:Abnormal x-ra y; COMMENT: lytic leision left humerus, followed by heme/onc, benign, 06/25/2014, 08/04/2011 and 07/08/2011. There is minimal endosteal scalloping of the anterior and lateral mid humeral cortex, unchanged compared to 01/2016. 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 Obesity (BMI 30.0-34.9) 07/13/2017 DX:Obesi ty (BMI 30.0-34.9) Hyperlipidemia 09/27/2023 Family History Medical History Relation Name Comments Autoimmune disease Neg Hx Breast cancer Neg Hx Colon cancer Neg Hx Coronary artery disease Neg Hx Diabetes Neg Hx Heart attack Neg Hx Heart failure Neg Hx Hyperlipidemia Neg Hx Hypertension Neg Hx Mental illness Neg Hx Prostate cancer Neg Hx Sleep apnea Neg Hx Thyroid disease Neg Hx Social History Tobacco Use Types Packs/Day Years Used Date Smoking Tobacco: Former Smokeless Tobacco: Never Tobacco Cessation:Counseling Given: Not Answered Alcohol Use Standard Drinks/Week Comments Yes 0 (1 standard drink = 0.6 oz pur e alcohol) Sex and Gender Information Value Date Recorded Sex Assigned at Not on file Gender Identity Not on file Sexual Orientation Not on file Job Start Date Occupation Industry Not on file Not on file Not on file Obstetrics History Last Filed Vital Signs Vital Sign Reading Time Taken Comments Blood Pressure 128/78 05/12/2024 11:01 AM EST Pulse 62 05/12/2024 11:01 AM EST Temperature 36.1 ??C (96.9 ??F) 05/12/2024 11:[address] Respiratory Rate 22 05/12/2024 11:01 AM EST Oxygen Saturation 96% 03/31/2024 3:10 PM EST Inhaled Oxygen Concentration - - Weight 98 kg (216 lb) 05/12/2024 11:01 AM EST Height 180.3 cm (5' 11 ) 05/12/2024 11:01 AM EST Body Mass Index 30.13 05/12/2024 11:01 AM EST Plan of Treatment Upcoming Encounters Date Type Department Care Team (Late st Contact Info) Description 11/05/2024 9:30 AM EDT Office Visit Orthopedic Surgery - [place] [address] [facility] [address] [place] [address] Trace Russo MD [address] [facility] [address] [place] [address] 11/17/2024 4:00 PM EDT Office Visit Adult Medicine [facility] [address] [place] [phone] Claire Marshall MD [address] [place] [address] Health Maintenance Due Date Last Done Comments Zoster Vaccines (1 of 2) 2012 Depression Screening 04/01/2022 HIV Screening 04/01/2022 Social Influencers of Health Screening 04/01/2022 RSV Immunization Patients 60+ Years Old (1 - Risk 60-74 years 1-dose series) 2022 COVID-19 Vaccine ( season) 2023 08/02/2020, 07/05/2020 Influenza Vaccine (#1) 2023 , 04/18/2021, 01/26/2014, Additional history exists Colorectal Cancer Screening: Colonoscopy 09/10/2024 09/10/2014, 09/10/2014 Hypertension/CHF/CAD Annual BMP Blood Test 11/21/2024 11/22/2023, 11/22/2023, 08/27/2023 Cholesterol Screening (Lipid Panel) 08/26/2028 08/27/2023, 08/27/2023, 08/27/2023, Additional history exists DTaP,Tdap,and Td Vaccines (3 - Td or Tdap) 08/13/2031 08/12/2021, 07/18/2011 Hepatitis C Screening Completed 04/01/2016, 016 HIB Vaccines Aged Out No longer eligi ble based on patient's age to complete this topic HPV Vaccines Aged Out No longer eligi ble based on patient's age to complete this topic Hepatitis A Vaccines Aged Out No long er eligible based on patient's age to complete this topic Hepatitis B Vaccines Aged Out No long er eligible based on patient's age to complete this topic IPV Vaccines Aged Out No longer eligi ble based on patient's age to complete this topic MMR Vaccines Aged Out No longer eligi ble based on patient's age to complete this topic Meningococcal ACWY Vaccine Aged Out N o longer eligible based on patient's age to complete this topic Pneumococcal Vaccine: Pediatrics (0 to 5 Years) and At-Risk Patients (6 to 64 Years) Aged Out No longer eligible based on patient's age to complete this topic RSV Immunization Patients Under 20 months Aged Out No longer eligible based on patient's age to complete this topic Varicella Vaccines Aged Out No longer eligible based on patient's age to complete this topic Procedures Procedure Name Priority Date/Time Associated Diagnosis Comments ANNUAL BMP BLOOD TEST Routine 11/22/2023 LIPID PANEL Routine 08/27/2023 2:43 PM EDT HEPATITIS C SCREENING Routine 04/01/2016 COLONOSCOPY Routine 09/10/2014 from Last 3 Months or Most Recently Relevant to Health Maintenance Results * Annual BMP Blood Test (11/22/2023) Annual BMP Blood Test abstracted Historical Provider MD DARLENE Lomeli * (ABNORMAL) Lipid panel (08/27/2023 2:43 PM EDT) Cholesterol 224(A) 0 - 200 mg/dL Blood Venous blood specimen / Unknown Historical Provider LAB BLOOD ORDERAB LES * Hepatitis C Screening (04/01/2016) Hepatitis C Screening abstracted Historical Provider MD DARLENE GEIGER E * Colonoscopy (09/10/2014) Colonoscopy no interpreta tion,abstr acted Anatomical Region Laterality Modality Other Historical Provider MD DARLENE GEIGER E from Last 3 Months or Most Recently Relevant to Health Maintenance Care Teams Director Of Outreach Relationship Specialty Start Date End Date Claire Marshall MD [address] [place] [address] PCP - General 02/20/1999
--- OUTSIDE RECORDS SUMMARY | 2024-05-13 10:22 | XMS_ITS | Encounter Summary ---
Author Organization [facility] Address [address] [place] [address] Care Team Providers Care Screw Machine Operator Name Role Phone Claire Marshall MD Primary Care Provider [phone] Reason for Visit * Reason Comments Annual Exam Encounter Details Date Type Department Care Team (Late st Contact Info) Description 05/12/2024 11:00 AM EST Office Visit Adult Medicine [address] [phone] Claire Marshall MD [address] [place] [phone] Routine general medical examination at a health care facility (Primary Dx); Low back pain without sciatica, unspecified back pain laterality, unspecified chronicity; Adrenal tumor; Obesity (BMI 30-39.9) Social History Tobacco Use Types Packs/Day Years [...] on file documented as of this encounter Last Filed Vital Signs Vital Sign Reading Time Taken Comments Blood Pressure 128/78 05/12/2024 11:01 AM EST Pulse 62 05/12/2024 11:01 AM EST Temperature 36.1 ??C (96.9 ??F) 05/12/2024 11:[address] Respiratory Rate 22 05/12/2024 11:01 AM EST Oxygen Saturation - - Inhaled Oxygen Concentration - - Weight 98 kg (216 lb) 05/12/2024 11:01 AM EST Height 180.3 cm (5' 11 ) 05/12/2024 11:01 AM EST Body Mass Index 30.13 05/12/2024 11:01 AM EST documented in this encounter Ordered Prescriptions Prescription Sig Dispensed Refills Start Date End Da te ibuprofen (ADVIL,MOTRIN) 600 mg tablet Take 1 tablet (600 mg total) by mouth every 8 (eight) hours if needed (joint pain). 90 tablet 05/12/2024 08/10/2024 documented in this encounter Progress Notes * Claire Marshall MD - 05/12/2024 11:00 AM EST Chief Complaint: General Physical Identifier: Rl Holliday is a 63 y.o. male who presents for evaluation of general medical health. HPI: In for a physical exam. Patient is under much stress, his struggling with A-fib. Patient has many questions. Patient is suffering from some musculoskeletal pain. He has ongoing issues of shoulder pain, he follows orthopedic surgeon, shoulder replacement surgery is being discussed. Patient wishes my opinion. Patient recently developed recurrence of back pain, it worse with movements. No new symptoms no injury. Ibuprofen offered overall good relief. She follows with specialist at [facility] for her adrenal mass, patient has questions. No abdominal pain. Please see below for overall quite benign review of systems. No other problems or concerns. ROS: Constitutional: no weakness, fever or sweats Skin:. no rashes, lesions or pruritus Eyes:. no blurred vision, pain or discharge ENT:. no mouth pain, oral bleeding, neck pain or swollen glands Respiratory: no wheezing, cough or shortness of breath Cardiovascular: no chest pain or palpitations; no orthopnea or PND GI: no nausea, vomiting or diarrhea; no rectal bleeding or dark stools : no dysuria or frequency; no nocturia or hesitancy Musculoskeletal: no joint pain, stiffness or swelling Neurologic: no fainting, seizures, tremors or blackouts; no weakness or numbness Hematologic: no excessive bleeding or bruising Endocrine: no increase in hunger, thirst or urination Past Medical History Patient Active Problem List Diagnosis Date Noted Date Diagnosed Low back pain without sciatica 05/12/2024 Severe obesity (BMI 35.0-35.9 with comorbidity) (CMS/HCC) 03/14/2024 Hyperlipidemia 09/27/2023 Chronic right shoulder pain 12/27/2021 Wheezing 06/03/2018 Abnormal x-ray 12/30/2012 lytic leision left humerus, followed by heme/onc, benign, 06/25/2014, 08/04/2011 and 07/08/2011. There is minimal endosteal scalloping of the anterior and lateral mid humeral cortex, unchanged compared to 01/2016. 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 Resolved Problems No resolved problems to display. Immunizations Immunization History Administered Date(s) Administered Influenza Quadravalent, MDCK, 0.5ml, preservative free (Flucelvax) 6mo and older 04/18/2021, 12/27/2021 Influenza trivalent, with preservative (Fluzone; Afluria) 6mo and older 01/19/2013, 01/26/2014 Moderna SARS-CoV-2 COVID-19, mRNA, LNP-S, preservative free 07/05/2020, 08/02/2020 Tdap Tetanus diptheria acellular pertussis (Boostrix; Adacel) 7yo and older 07/18/2011, 08/12/2021 Health Maintenance Please see below for complete a detailed discussion. Social History Social History Socioeconomic History Marital status: Spouse name: Not on file Number of children: Not on file Years of education: Not on file Highest education level: Not on file Occupational History Not on file Tobacco Use Smoking status: Former Smokeless tobacco: Never Substance and Sexual Activity Alcohol use: Yes Drug use: No Sexual activity: Not on file Other Topics Concern Not on file Social History Narrative Not on file Social Determinants of Health Social Determinants of Health Food Risk: Not on file Transportation: Not on file Housing Instability: Not on file Food Access & Nutrition: Not on file Access to Healthcare: Not on file Health Literacy: Not on file Financial Risk: Not on file Social Isolation: Not on file Dependent Care: Not on file Education: Not on file Employment and Income: Not on file Living Situation: Not on file Family History Family History Problem Relation Name Age of Onset Hyperlipidemia Neg Hx Diabetes Neg Hx Autoimmune disease Neg Hx Breast cancer Neg Hx Colon cancer Neg Hx Prostate cancer Neg Hx Coronary artery disease Neg Hx Mental illness Neg Hx Heart attack Neg Hx Heart failure Neg Hx Sleep apnea Neg Hx Hypertension Neg Hx Thyroid disease Neg Hx Active Medications Current Outpatient Medications: amLODIPine (NORVASC) 5 mg tablet, Take 1 tablet (5 mg total) by mouth 1 (one) time each day., Disp:, Rfl: aspirin 81 mg EC tablet, Take 1 tablet (81 mg total) by mouth 1 (one) time each day., Disp: , Rfl: atorvastatin (LIPITOR) 10 mg tablet, Take 1 tablet (10 mg total) by mouth 1 (one) time each day., Disp: , Rfl: fluticasone propionate (FLONASE) 50 mcg/actuation nasal spray, Administer 2 sprays into each nostril 1 (one) time each day., Disp: , Rfl: ibuprofen (ADVIL,MOTRIN) 600 mg tablet, Take 1 tablet (600 mg total) by mouth every 8 (eight) hoursif needed (joint pain)., Disp: 90 tablet, Rfl: 0 loratadine 10 mg capsule, Take 10 mg by mouth 1 (one) time each day if needed., Disp: , Rfl: Allergies Allergies Allergen Reactions Pollen Extracts Seasonal Allergies Physical Exam Visit Vitals BP 128/78 Pulse 62 Temp 36.1 ??C (96.9 ??F) (Temporal) Resp 22 @WEIGHTCHANGE@ Body mass index is 30.13 kg/m??. is above average. The patient received dietary education and exercise education because they have an above normal BMI. In general, the patient is in no acute distress. Eyes: EMETERIO. ENT: Oropharynx is benign, TMs are clear, neck without adenopathy. Lungs are clear to auscultation. Heart has a regular rhythm without murmurs, rubs or gallops. Abdominal exam: positive bowel sounds; soft, nontender and without hepatospl enomegaly. Thyroid not palpable. Carotids 2+ and equal without bruits. Normal male genitalia with no testicular masses. Rectal exam normal sphinter tone, normal prostrate and quiac negative brown stool. Extremities show no cyanosis, clubbing or edema. Neurological exam is nonfocal. Skin examinationis without lesions. Labs Wt Readings from Last 5 Encounters: 05/12/24 98 kg (216 lb) 03/31/24 96.1 kg (211 lb 12.8 oz) 11/28/23 102 kg (224 lb 6 oz) 11/22/23 101 kg (223 lb 6.4 oz) 10/29/23 104 kg (230 lb) BP Readings from Last 5 Encounters: 05/12/24 128/78 03/31/24 132/86 11/28/23 116/70 11/22/23 125/88 09/27/23 116/82 Impression 1. Routine general medical examination at a health care facility CBC and differential Comprehensive metabolic panel Hemoglobin A1c Lipid panel with reflex to direct LDL 2. Low back pain without sciatica, unspecified back pain laterality, unspecified chronicity 3. Adrenal tumor 4. Obesity (BMI 30-39.9) PLAN: Routine labs will be drawn. Health Maintenance:Patient presented for evaluation of general health. As part of this visit we reviewed the following issues which are considered an essential part of preventative health in this agegroup: Immunizations, we discussed Prostate Cancer Screeing for high risk individuals(family hx and Ancestry) which includes ROBYN +/- PSA. Discussed limitation of PSA testing. We decided to hold off. Patient's colonoscopy is not due until later this year Education about skin cancer Blood pressure screening yearly Cholesterol will be repeated Eye exam for glaucoma every 2-4 years in this age group Alcohol and substance abuse counseling Nutritional and Exercise Counseling, stressed weight control. Injury Prevention including water safety, fire prevention, smoke alarms, helmet use body piercing Seat Belt usage Screening for depression, I can understand patient's stress we had a prolonged discussion. 1 I discussed answered patient's questions regarding treatment for A-fib, anticoagulation to prevent stroke 2 regarding patient's diffuse to musculoskeletal pain I reviewed patient's records from orthopedic service A shoulder pain, discussed continued home physical therapy discussed general precautions B back pain, for completeness I will order back x-ray. We discussed home physical therapy. 3 discussed patient's weight, encouraged patient effort and noted steady weight improvement. Discussed InContext patient's other medical issues and my decision to check fasting blood glucose lipid profile, hopefully with some weight reduction 4 discussed the patient's adrenal tumor, and I tried my best answer patient many questions. I encouraged the patient to follow with specialist in [place] and obtain records for me. Claire Marshall MD documented in this encounter Plan of Treatment Upcoming Encounters Date Type Department Care Team (Late st Contact Info) Description 11/05/2024 9:30 AM EDT Office Visit Orthopedic Surgery - [place] [address] [facility] [address] [place] [address] Trace Russo MD [address] [facility] [address] [place] [address] 11/17/2024 4:00 PM EDT Office Visit Adult Medicine [facility] [address] [place] [address] Claire Marshall MD [address] [place] [phone] Scheduled Orders Name Type Priority Associated Diagnoses Orde r Schedule CBC and differential Lab Routine Routine general medical examination at a [facility] facility 1 Occurrences starting 05/12/2024 until 05/12/2025 Comprehensive metabolic panel Lab Routine Routine general medical examination at [facility] 1 Occurrences starting 05/12/2024 until 05/12/2025 Hemoglobin A1c Lab Routine Routine general medical examination at a [facility] 1 Occurrences starting 05/12/2024 until 05/12/2025 Lipid panel with reflex to direct LDL Lab Routine Routine general medical examination at a [facility] 1 Occurrences starting 05/12/2024 until 05/12/2025 documented as of this encounter Visit Diagnoses Diagnosis Routine general medical examination at a health [facility] facility- Primary Low back pain without sciatica, unspecified back pain laterality, unspecified chronicity Adrenal tumor 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 Reorder 06/21/2023 05/12/2024 documented as of this encounter Care Teams Screw Machine Operator Relationship Specialty Start Date End Date Claire Marshall MD [address] [place] [address] [phone] PCP - General 02/20/1999 documented as of this encounter
--- OUTSIDE RECORDS SUMMARY | 2024-05-13 10:22 | XMS_ITS | Encounter Summary ---
Author Organization [facility] Address [address] [place] [address] Care Team Providers Care Graduate School Dean Name Role Phone Claire Marshall MD Primary Care Provider [phone] Reason for Visit * Reason Onset Date Comments Coughing Up Blood 04/01/2024 Encounter Details Date Type Department Care Team (Late st Contact Info) Description 04/01/2024 Nurse Triage Adult Medicine [facility] [address] [place], [place] [phone] Claire Marshall MD [address] [place], [place] Coughing Up Blood Social History Tobacco Use Types Packs/Day Years [...] on file documented as of this encounter Ordered Prescriptions Prescription Sig Dispensed Refills Start Date End Da te azithromycin (ZITHROMAX) 250 mg tablet Take 1 tablet (250 mg total) by mouth 1 (one) time each day for 4 days. 4 each 04/01/2024 04/05/2024 documented in this encounter Progress Notes * Carlos Hughes NP - 04/01/2024 1:22 PM EST Spoke to patient. Patient took 1000 mg of azithromycin yesterday. He is still not feeling well. Patient is to take 250 mg daily for the next 4 days. He is to follow-up if no improvement. Patient understand plan. Prescription sent to the pharmacy. * Shira Newton RN - 04/01/2024 9:09 AM EST Pt was seen yesterday, this am has increasing pressure in his ear and has developed blood tinged nasal drainage and blood tingled sputum, he has no chest pain or SOB, denies any N/V/D or fever . Pt was given Zithromax and took 1000- mg in one dose po yesterday he is questioning if he should take a longer coarse of this med for thi ear infection Pt advised on home care is taking claritan , increased fluids * Enrique Boland - 04/01/2024 8:56 AM EST Caller requesting call back from provider: Is the caller the patient? YES If caller is not the patient, what is the callers name? Callers relationship to patient? If person calling is not the patient themselves, is there a verbal release in FYI or permanent comments for this person: Reason for call back: Pt calling was seen by office yesterday & was prescribed antibiotics. He woke up today coughing up blood asking if this is normal. Would like to speak with nurse Caller offered to speak with the nurse for assistance: YES Response: Patient offered to speak with nurse for assistance and patient agreed. Message forwarded to nurse. documented in this encounter Plan of Treatment Upcoming Encounters Date Type Department Care Team (Late st Contact Info) Description 11/05/2024 9:30 AM EDT Office Visit Orthopedic Surgery - [place] [address] [facility] [address] [place] [phone] Trace Russo MD [address] [facility] [address] [place] [address] 11/17/2024 4:00 PM EDT Office Visit [address] [place] [address] Claire Marshall MD [address] [place] [address] documented as of this encounter Visit Diagnoses Not on filedocumented in this encounter Discontinued Medications Medication Sig Discontinue Reason Start Date End Da te azithromycin (ZITHROMAX) 250 mg tablet Take 4 tablets (1,000 mg total) by mouth 1 (one) time for 1 dose. 03/31/2024 04/01/2024 documented as of this encounter Care Teams Graduate School Dean Relationship Specialty Start Date End Date Claire Marshall MD [address] [place] [address] PCP - General 02/20/1999 documented as of this encounter
== END 2024-05-13 10:09 | disposition home or self-care (01) ==
PROVIDERS: PCP Internal Medicine; Visit Provider Student in an Organized Health Care Education/Training Program
DX: I10 Essential (primary) hypertension (principal); E87.6 Hypokalemia
CPT/HCPCS: 99213

== ENCOUNTER → 2024-05-13 09:28 | Outpatient (BNVA) | payer OTHER, SELFPAY | PROVIDERS: PCP Internal Medicine; Visit Provider Student in an Organized Health Care Education/Training Program ==

== ENCOUNTER 2024-08-10 15:20 | Emergency (ER) | payer OTHER, SELFPAY ==
[2024-08-10 15:35] VITALS: BP 146/80; PULSE 67; RESP 18; TEMP 36.6; O2SAT 98; BMI 30.7
--- NOTE | 2024-08-10 15:35 | ED.ABDPAIN ---
HPI - Abdominal Pain General Chief Complaint: Abdominal Pain Stated Complaint: called for ekg testing Time Seen by Provider: 08/10/24 17:04 Source: patient Mode of arrival: ambulatory Limitations: no limitations History of Present Illness ED Provider: VAUGHN GREEN narrative: 63 yo male with PMH of HTN here with c/o a week of LUQ bloating after he eats no n/v/d, fevers, weight loss, pain. He has no GIB symptoms. He took his wifes prilosec x 1 with no relief. He denies any other concerns. Went to to get checked out they state his EKG was abnormal and referred him here. NO CP/SOB. MD elicited complaint: abdominal pain Pertinent past history: none Onset (ago): day(s) (several) Location: none Severity: mild Quality: other (bloating) Radiation: LUQ Exacerbating factors: eating Relieving factors: nothing Related Data Home Medications ?Medication ?Instructions ?Recorded ?Confirmed aspirin 81 mg tablet,delayed 81 mg PO DAILY 09/06/23 04/22/24 release fluticasone propionate 50 2 spray intranasal DAILY PRN 09/06/23 04/22/24 mcg/actuation nasal Allergy Symptoms spray,suspension (Flonase Allergy Relief) loratadine 10 mg tablet (Allergy 10 mg PO DAILY PRN Allergy Symptoms 09/06/23 04/22/24 Relief (loratadine)) atorvastatin 10 mg tablet 10 mg PO DAILY 11/24/23 04/22/24 Previous Rx's ?Medication ?Instructions ?Recorded amlodipine 5 mg tablet (Norvasc) 5 mg PO DAILY #90 tabs 06/19/24 omeprazole 40 mg capsule,delayed 40 mg PO DAILY #14 caps 08/10/24 release sucralfate 100 mg/mL oral 10 ml PO BID 7 days #140 mL 08/10/24 suspension (Carafate) Allergies Allergy/AdvReac Type Severity Reaction Status Date / Time Seasonal Allergies Allergy Mild Sneezing Verified 08/10/24 15:40 Review of Systems Review of Systems Constitutional : No Weight loss, No Fever, No Chills ENT/Mouth : No sore throat, No Rhinorrhea Eyes: No Swelling, No Redness Cardiovascular : No Chest Pain, No SOB, NoEdema Respiratory : No Cough, No Sputum, No Wheezing Gastrointestinal : no Nausea, no Vomiting, no Diarrhea, no abdominal Pain, No Hematochezia, No Melena Genitourinary : No Dysuria, No Urinary Frequency, No Hematuria, No Urgency Musculoskeletal : No joint pain, No Myalgias, No Joint Swelling Skin : No Skin Lesions, No rash Neuro : No Weakness, No Numbness, No Dizziness, No Headache All other systems reviewed and are negative. [facility] Past Medical History Attestation statement: The following information was validated with the patient. 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 Father No problems noted. Social History Social History Household Members: Spouse and Children Housing: House Do you presently have visiting nurse or other home services: No Alcohol intake: former Patient Tobacco Use Status: Former Tobacco user Smoked in Last 30 Days: No Second Hand Smoke Exposure: No Use of substances other than those prescribed or required for medical reasons: No Advance Directives: No Advance Directives Information Provided: No Physical Exam ED Vital Signs: Vital Signs - 24 hr 08/10/24 15:35 Temperature 97.8 F Pulse Rate 67 Respiratory Rate 18 Blood Pressure 146/80 H Pulse Oximetry 98 Oxygen Delivery Method Room Air BMI result Body Mass Index 30.7 Appearance: Alert. Oriented X3. No acute distress. Eyes: Pupils equal, round and reactive to light. ENT: Pharynx normal. Neck: Normal inspection. Neck supple. CVS: Normal heart rate and rhythm. Pulses normal. Respiratory: No respiratory distress. Breath sounds normal. Abdomen: Soft and nontender. Skin: Skin warm and dry. Normal skin color. Normal skin turgor. Extremities: No lower extremity edema. No calf ttp Neuro: Oriented X 3. No motor deficit. No sensory deficit. CN2-12 intact Course Course Course Narrative: This is an RME performed by Carmine Rose, HEALTHCARE RECRUITER: Additional HPI, ROS, PE not included below will be deferred to primary provider. Patient is a 63-year-old male who presents emergency department for evaluation, he was at urgent care prior to arrival was seeking evaluation for intermittent left upper quadrant abdominal pain, acid reflux, nausea. Onset was 3 days ago. At urgent care was advised that EKG was abnormal, T wave abnormality. A my interpretation has T-wave inversion in lead III, V1-V3. On evaluation of prior in our medical record does not appear to be a new finding. Denies associated chest pain. Denies history of diabetes, alcohol consumption Plan: Serum labs, urinalysis Medical Decision Making Medical Decision Making MDM Narrative: 63 yo male with PMH of HTN here with abdominal bloating but no pain no fevers no n/v/d no CP/SOB and no GIB symptoms for the past week only bothers him when he eats at this time will need labs, EKG given UC concern though unchanged from his chronic EKG - At this time could be GERD, gastritis, constipation. Has benign abdomen would hold off imaging at this time Differential Diagnosis Differential Diagnoses: The differential diagnosis associated with the presentation includes GERD, gastritis, constipation. Admission/Observation Consideration of admission/observation: Escalation of care including admission/observation considered labs reassuring stable for DC Lab Data [facility] Lab Attestation statement: I reviewed the patient's lab results. 08/10/24 16:07 08/10/24 16:07 Labs: Lab Results 08/10/24 Range/Units 16:07 WBC 5.5 (4.8-10.8) X10*3/uL RBC 4.30 L (4.60-5.80) X10*6/uL Hgb 13.4 L (14.0-18.0) g/dl Hct 39.3 L (42.0-52.0) % MCV 91.4 (80.0-98.0) fL MCH 31.2 (27.0-33.0) pg MCHC 34.1 (31.0-36.0) g/dl RDW 13.2 (11.0-16.0) % Plt Count 169 (160-400) X10*3/uL MPV 9.5 (9.4-12.4) fL Immature Gran % (Auto) 0.4 (0.0-0.4) % Neut % (Auto) 70.0 (45-73) % Lymph % (Auto) 19.7 L (20-40) % [place] % (Auto) 8.3 (2-11) % Eos % (Auto) 0.9 (0-4) % Baso % (Auto) 0.7 (0-2) % Lymph # (Auto) 1.1 L (1.2-4.9) X10*3/uL [place] # (Auto) 0.5 (0.1-1.2) X10*3/uL Eos # (Auto) 0.1 (0.0-0.4) X10*3/uL Baso # (Auto) 0.0 (0.0-0.2) X10*3/uL Abs Immat Gran (auto) 0.02 (0.00-0.03) X10*3/uL Absolute Neuts (auto) 3.9 (2.0-8.3) x10*3/uL Absolute Nucleated RBC 0.000 (0.0-0.012) X10*3/uL Nucleated RBC % (auto) 0.0 (0.0-0.2) /100WBC Sodium 142 (135-145) mmol/L Potassium 4.3 (3.3-5.1) mmol/L Chloride 107 (96-108) mmol/L Carbon Dioxide 25 (22-29) mmol/L Anion Gap 14 (12-20) BUN 9 (9-16) mg/dL Creatinine 0.68 (0.5-1.4) mg/dL Estim Creat Clear Calc 133.4 Estimated GFR > 60 Random Glucose 96 (60-115) mg/dL Calcium 9.5 D (8.4-10.2) mg/dL Total Bilirubin 1.6 H (0.0-1.0) mg/dL Direct Bilirubin 0.4 (0.0-0.5) mg/dL AST 24 (5-37) U/L ALT 22 (0-40) U/L Alkaline Phosphatase 73 (39-117) U/L Total Protein 7.0 (6.5-8.0) g/dL Albumin 4.2 (3.5-5.0) g/dL Lipase 21 (8-78) U/L Urine Color Yellow Urine Appearance Clear Urine pH 7.0 (5.0-9.0) Ur Specific [place] <= 1.005 (1.005-1.025) Urine Protein Negative (Neg-Trace) mg/dL Urine Glucose (UA) Negative (Negative) mg/dL Urine Ketones Negative (Negative) mg/dL Urine Blood Negative (Negative) Urine Nitrite Negative (Negative) Ur Leukocyte Esterase Negative (Negative) Independent Interpretation I performed an independent interpretation of an: EKG Interpretation: Rate: 54 Rhythm: sinus bradycardia [place]: normal Normal P waves. Normal RYNE. Normal QRS complex. ST T wave : inverted t waves V1 and V3, no GRISELDA qTC: 409 prior studies: no acute ischemia The study has been interpreted contemporaneously by me. . External Record Review External record reviewed: Inpatient record and Outpatient record Prescription Management I considered prescription management with: Other Discharge Plan Discharge Clinical Impression: Abdominal pain Qualifiers: Abdominal location: left upper quadrant Qualified Code(s): R10.12 - Left upper quadrant pain Patient Disposition: Home, Self-Care Instructions: Abdominal Pain (ED) Additional Instructions: labs, EKG, kidney function, liver panel, pancreas all normal no change in EKG from priors please eat a blander diet, avoid greasy, spicy foods for the next one week do not take motrin, aleve, ibuprofen tylenol is okay follow up with your doctor if this continues in the next week Prescriptions: New omeprazole 40 mg capsule,delayed release(DR/EC) 40 mg PO DAILY Qty: 14 0RF sucralfate [Carafate] 100 mg/mL suspension 10 ml PO BID 7 Days Qty: 140 0RF No Action amlodipine [Norvasc] 5 mg tablet 5 mg PO DAILY Qty: 90 3RF atorvastatin 10 mg tablet 10 mg PO DAILY aspirin 81 mg tablet,delayed release (DR/EC) 81 mg PO DAILY fluticasone propionate [Flonase Allergy Relief] 50 mcg/actuation spray,suspension 2 spray intranasal DAILY PRN (Reason: Allergy Symptoms) Rx Instructions: administer into each nostril loratadine [Allergy Relief (loratadine)] 10 mg tablet 10 mg PO DAILY PRN (Reason: Allergy Symptoms) Print Language: Macedonian
[2024-08-10 16:16] LABS: MANUAL DIFF FLAG NO
--- OUTSIDE RECORDS SUMMARY | 2024-08-10 16:17 | XMS_ITS | Clinical Summary ---
Author Organization [facility] [address] [place] [address] [place] [phone] Phone Care Team Providers Care Power Press Operator Name Role Phone Claire Marshall MD Primary Care Provider [phone] Allergies Active Allergy Reactions Criticality Noted Date Comments Pollen Extracts 10/13/2015 Seasonal Allergies Medications loratadine 10 mg capsule Take 10 mg by mouth 1 (one) time each day if needed. OTC Active amLODIPine (NORVASC) 5 mg tablet Take 1 tablet (5 mg total) by mouth 1 (one) time each day. 90 each 1 5 Active atorvastatin (LIPITOR) 10 mg tablet Take 1 tablet (10 mg total) by mouth 1 (one) time each day. 90 each 1 5 Active aspirin 81 mg EC tablet Take 1 tablet (81 mg total) by mouth 1 (one) time each day. 90 each 1 5 Active fluticasone propionate (FLONASE) 50 mcg/actuation nasal spray Administer 2 sprays into each nostril 1 (one) time each day. 16 g 1 5 Active naproxen (NAPROSYN) 500 mg tablet Take 1 tablet (500 mg total) by mouth 2 (two) times a day if needed for mild pain (pain). 60 tablet 5 5 02/19/20 25 Active Active Problems Problem Noted Date Diagnosed Date Primary hypertension 07/09/2024 Anemia 07/09/2024 Overview (07/09/2024): mild, stable, normal tests, ferritin, b12/folate Low back pain without sciatica 05/12/2024 Severe obesity (BMI 35.0-35. 9 with comorbidity) ([facility] V24, [facility] V28) 03/14/2024 Hyperlipidemia 09/27/2023 Chronic right shoulder pain 12/27/2021 Wheezing 06/03/2018 Assessment & Plan (05/27/2024 8:46 PM EST): Patient reports wheezing. Will start patient on albuterol. He was tested for COVID, RSV and flu. Work note given. Orders: albuterol HFA (Proventil HFA) 90 mcg/actuation inhaler; Inhale 2 puffs by mouth every 4 (four) hours if needed for wheezing or shortness of breath. [id number], RSV, Influenza A and B qualitative RT-PCR; Future Abnormal x-ray 12/30/2012 Overview (06/28/2023): lytic leision left humerus, followed by heme/onc, benign, 06/25/2014, 08/04/2011 and 07/08/2011. There is minimal endosteal scalloping of the anterior and lateral mid humeral cortex, unchanged compared to 01/2016. 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 Encounters Date Type Department Care Team Description 08/08/2024 Telephone Adult Medicine [address] [phone] Claire Marshall MD Ear Fullness 07/09/2024 2:30 PM EDT Office Visit Adult Medicine [address] [phone] Claire Marshall MD Adrenal tumor (Primary Dx); Other hyperlipidemia; Primary hypertension; Abnormal laboratory test; Stress at home; Anemia, unspecified type 06/23/2024 3:20 PM EST - 06/23/2024 11:59 PM EST Hospital Encounter [address] [phone] Acute pain of left knee Discharge Disposition: Home or Self Care 06/23/2024 3:00 PM EST Office Visit [address] [phone] Carlos Hughes NP Acute pain of left knee (Primary Dx) 06/06/[address] [phone] Claire Marshall MD Nasal Congestion 05/29/2024 Nurse Triage [address] [phone] Claire Marshall MD Wheezing 05/27/2024 8:00 AM EST Office Visit [address] [phone] Carlos Hughes NP Upper respiratory tract infection, unspecified type (Primary Dx); Wheezing 05/12/2024 11:00 AM EST Office Visit [address] [phone] Claire Marshall MD Routine general medical examination at a health care facility (Primary Dx); Low back pain without sciatica, unspecified back pain laterality, unspecified chronicity; Adrenal tumor; Obesity (BMI 30-39.9) from Last 3 Months Immunizations Name Administration [...] 07/13/2017 DX:Obesi ty (BMI 30.0-34.9) Hyperlipidemia 09/27/2023 Primary hypertension 07/09/2024 Family History Medical History Relation Name Comments [...] Recorded Sex Assigned at Not on file Legal Sex Male 9:00 AM EST Gender Identity Not on file Sexual Orientation Not on file Obstetrics History Last Filed Vital Signs Vital Sign Reading Time Taken Comments Blood Pressure 134/76 07/09/2024 2:30 PM EDT Pulse 72 07/09/2024 2:30 PM EDT Temperature 36.2 ??C (97.1 ??F) 07/09/2024 2:30 PM ED T Respiratory Rate 20 07/09/2024 2:30 PM EDT Oxygen Saturation 95% 06/23/2024 2:52 PM EST Inhaled Oxygen Concentration - - Weight 99.3 kg (219 lb) 07/09/2024 2:30 PM EDT Height 177.8 cm (5' 10 ) 07/09/2024 2:30 PM EDT Body Mass Index 31.42 07/09/2024 2:30 PM EDT Plan of Treatment Upcoming Encounters Date Type Department Care Team (Late st Contact Info) Description 11/05/2024 9:30 AM EDT Office Visit Orthopedic Surgery - [place] [address] [facility] [address] [place] [phone] Trace Russo MD [address] [facility] [address] [place] [address] 11/17/2024 4:00 PM EDT Office Visit Adult Medicine [facility] [address] [place] [phone] Claire Marshall MD [address] [place] [address] Health Maintenance Due Date Last Done Comments Pneumococcal Vaccine: 50+ Years (1 of 1 - PCV) 2012 Zoster Vaccines (1 of 2) 2012 Depression Screening 04/01/2022 HIV Screening 04/01/2022 Social Influencers of Health Screening 04/01/2022 RSV Immunization Adult Patients (1 - Risk 60-74 years 1-dose series) 2022 COVID-19 Vaccine ( - season) 2023 08/02/2020, 07/05/2020 Colorectal Cancer Screening: Colonoscopy 09/10/2024 09/10/2014, 09/10/2014 Influenza Vaccine (Season Ended) 2024 12/27/2021, 04/18/2021, 01/26/2014, Additional history exists Hypertension/CHF/CAD Annual BMP Blood Test 06/03/2025 06/03/2024, 11/22/2023, 11/22/2023, Additional history exists Cholesterol Screening (Lipid Panel) 06/03/2029 06/03/2024, 08/27/2023, 08/27/2023, Additional history exists DTaP,Tdap,and Td [...] patient's age to complete this topic Meningococcal B Vaccine Aged Out No l onger eligible based on patient's age to complete [...] Procedure Name Priority Date/Time Associated Diagnosis Comments XR KNEE 4+ VIEWS LEFT Routine 06/23/2024 3:32 PM EST Acute pain of left knee CBC WITH AUTO DIFFERENTIAL Routine 06/13/2024 9:47 AM EST Anemia, unspecified type VITAMIN B12 AND FOLATE Routine 9:47 AM EST Anemia, unspecified type CBC AND DIFFERENTIAL Routine 06/13/2024 9:47 AM EST Anemia, unspecified type FERRITIN Routine 06/13/2024 9:47 AM EST Anemia, unspecified type CBC WITH AUTO DIFFERENTIAL Routine 06/03/2024 9:30 AM EST Routine general medical examination at a health care facility CBC AND DIFFERENTIAL Routine 06/03/2024 9:30 AM EST Routine general medical examination at a [facility] care facility COMPREHENSIVE METABOLIC PANEL Routine 06/03/2024 9:30 AM EST Routine general medical examination at a health care facility HEMOGLOBIN A1C Routine 06/03/2024 9:30 AM EST Routine general medical examination at a health care facility LIPID PANEL WITH REFLEX TO DIRECT LDL Routine 06/03/2024 9:30 AM EST Routine general medical examination at a [facility] care facility [id number], RSV, FLU A AND B QUALITATIVE RT-PCR, LOCAL REFERENCE LAB Routine 05/27/2024 8:22 AM EST Upper respiratory tract infection, unspecified type HEPATITIS C SCREENING Routine 04/01/2016 COLONOSCOPY Routine 09/10/2014 from Last 3 Months or Most Recently Relevant to Health Maintenance Results * XR Knee 4+ Views Left (06/23/2024 3:32 PM EST) Anatomical Region Laterality Modality Lower Extremities, Knee Left Radiogra phic Imaging 06/23/2024 9:28 PM EST Impressions 06/23/2024 9:31 PM EST Very mild degenerative changes at the patellofemoral joint. ??Small joint effusion. POS - [id number] -------- FINAL REPORT -------- Dictated By: Natalya Zayas Dictated Date: 06/23/2024 21:28 ET Assigned Physician: Natalya Zayas Reviewed and Electronically Signed By: Natalya Zayas Signed Date: 06/23/2024 21:31 ET Workstation ID: [id number] Transcribed By: Self Edit Transcribed Date: 06/23/2024 21:28 ET Narrative 06/23/2024 9:31 PM EST EXAM: Left knee x-ray HISTORY: Left knee pain and swelling. COMPARISON: None VIEWS: ??4 views performed, AP view performed weightbearing. FINDINGS: Minimal joint space narrowing at the patellofemoral joint with minimal spurring. ??Small superior patellar spur at the quadriceps attachment from enthesopathy. ??No evidence of an acute fracture or malalignment. ??No destructive bone lesion. ??Small joint effusion. Procedure Note Natalya Zayas MD - 06/23/2024 EXAM: Left knee x-ray HISTORY: Left knee pain and swelling. COMPARISON: None VIEWS: 4 views performed, AP view performed weightbearing. FINDINGS: Minimal joint space narrowing at the patellofemoral joint with minimalspurring. Small superior patellar spur at the quadriceps attachment fromenthesopathy. No evidence of an acute fracture or malalignment. Nodestructive bone lesion. Small joint effusion. IMPRESSION: Very mild degenerative changes at the patellofemoral joint. Small jointeffusion. POS - [id number] -------- FINAL REPORT -------- Dictated By: Natalya Zayas Dictated Date: 06/23/2024 21:28 ET Assigned Physician: Natalya Zayas Reviewed and Electronically Signed By: Natalya Zayas Signed Date: 06/23/2024 21:31 ET Workstation ID: [id number] Transcribed By: Self Edit Transcribed Date: 06/23/2024 21:28 ET Carlos Hughes C S S REPRESENTATIVE IMG XR PROCEDURES Final Resu lt * (ABNORMAL) Vitamin B12 and folate (06/13/2024 9:47 AM EST) Vitamin B-12 496 250 - 900 pcg/mL LAB CHEMISTRY METHOD 06/13/2024 1:48 PM EST [facility] Folate >20.0(H) 2.8 - 17.0 ng/ml LAB CHEMISTRY METHOD 06/13/2024 1:48 PM EST [facility] Blood Venous blood specimen / Unknown Venipuncture / Unknown 06/13/2024 9:47 AM EST 06/13/2024 9:47 AM EST Claire Marshall MD LAB BLOOD ORDERABLES Final Resul t [facility] [address] [place] [address], [place] [phone] * (ABNORMAL) CBC auto differential (06/13/2024 9:47 AM EST) Only the most recent of2 resultswithin the time period is included. [facility] Signature WBC 6.2 4.8 - 10.8 K/mcL LAB HEMETOLOGY METHOD 06/13/2024 12:25 PM [facility] RBC 4.00(L) 4.50 - 5.50 M/mcL LAB HEMETOLOGY METHOD 06/13/2024 12:25 PM [facility] Hemoglobin 12.1(L) 13.5 - 17.5 g/dL LAB HEMETOLOGY METHOD 06/13/2024 12:25 PM [facility] Hematocrit 35.9(L) 42.0 - 54.0 % LAB HEMETOLOGY METHOD 06/13/2024 12:25 PM [facility] MCV 90.4 79.0 - 98.0 FL LAB HEMETOLOGY METHOD 06/13/2024 12:25 PM [facility] MCH 30.5 27.0 - 32.0 pcg LAB HEMETOLOGY METHOD 06/13/2024 12:25 PM [facility] MCHC 33.7 32.0 - 37.0 g/dL LAB HEMETOLOGY METHOD 06/13/2024 12:25 PM [facility] RDW 13.3 11.0 - 15.0 % LAB HEMETOLOGY METHOD 06/13/2024 12:25 PM [facility] Platelets 237 130 - 400 K/mcL LAB HEMETOLOGY METHOD 06/13/2024 12:25 PM [facility] MPV 9.8 7.0 - 11.0 FL LAB HEMETOLOGY METHOD 06/13/2024 12:25 PM [facility] NRBC 0.0 <1.0 % LAB HEMETOLOGY METHOD 06/13/2024 12:25 PM [facility] NRBC Absolute 0.00 <0.10 K/mcL LAB HEMETOLOGY METHOD 06/13/2024 12:25 PM [facility] Neutrophils Relative 66.1 % LAB HEMETOLOGY METHOD 06/13/2024 12:25 PM [facility] Lymphocytes Relative 21.7 % LAB HEMETOLOGY METHOD 06/13/2024 12:25 PM [facility] Monocytes Relative 9.9 % LAB HEMETOLOGY METHOD 06/13/2024 12:25 PM [facility] Eosinophils Relative 1.5 % LAB HEMETOLOGY METHOD 06/13/2024 12:25 PM [facility] Basophils Relative 0.5 % LAB HEMETOLOGY METHOD 06/13/2024 12:25 PM [facility] Immature Granulocytes Relative 0.3 % LAB HEMETOLOGY METHOD 06/13/2024 12:25 PM [facility] Neutrophils Absolute 4.08 1.50 - 7.00 K/mcL LAB HEMETOLOGY METHOD 06/13/2024 12:25 PM [facility] Lymphocytes Absolute 1.34 1.00 - 5.00 K/mcL LAB HEMETOLOGY METHOD 06/13/2024 12:25 PM [facility] Monocytes Absolute 0.61 0.20 - 1.00 K/mcL LAB HEMETOLOGY METHOD 06/13/2024 12:25 PM [facility] Eosinophils Absolute 0.09 0.00 - 0.50 K/mcL LAB HEMETOLOGY METHOD 06/13/2024 12:25 PM [facility] Basophils Absolute 0.03 0.00 - 0.20 K/mcL LAB HEMETOLOGY METHOD 06/13/2024 12:25 PM [facility] Immature Granulocytes Absolute 0.02 0.00 - 0.03 K/mcL LAB HEMETOLOGY METHOD 06/13/2024 12:25 PM [facility] Blood Venous blood specimen / Unknown Venipuncture / Unknown 06/13/2024 9:47 AM EST 06/13/2024 9:47 AM EST us Claire Marshall MD LAB BLOOD ORDERABLES Final Resul t Performing Organization Address City/[facility]/ZIP Co de Phone Number [facility] [address] [place] [address], [place] [phone] * (ABNORMAL) Ferritin (06/13/2024 9:47 AM EST) Ferritin 586(H) 26 - 388 ng/mL LAB CHEMISTRY METHOD 06/13/2024 1:48 PM EST [facility] Blood Venous blood specimen / Unknown Venipuncture / Unknown 06/13/2024 9:47 AM EST 06/13/2024 9:47 AM EST us Claire Marshall MD LAB BLOOD ORDERABLES Final Resul t Performing Organization Address [facility]/ZIP Co de Phone Number [facility] [address] [place] [address], [place] [phone] * Lipid panel with reflex to direct LDL (06/03/2024 9:30 AM EST) Cholesterol 145 0 - 200 mg/dL LAB CHEMISTRY METHOD 06/03/2024 12:58 PM [facility] Triglycerides 52 0 - 150 mg/dL LAB CHEMISTRY METHOD 06/03/2024 12:58 PM [facility] HDL 61 >=40 mg/dL LAB CHEMISTRY METHOD 06/03/2024 12:58 PM [facility] LDL Calculated 74 0 - 100 mg/dL LAB CHEMISTRY METHOD 06/03/2024 12:58 PM [facility] VLDL Cholesterol Reuben 10.4 mg/dL LAB CHEMISTRY METHOD 06/03/2024 12:58 PM [facility] Non HDL Chol. (LDL+VLDL) 84 <145 mg/dL LAB CHEMISTRY METHOD 06/03/2024 12:58 PM EST [facility] Chol/HDL Ratio 2.4 0.0 - 4.4 LAB CHEMISTRY METHOD 06/03/2024 12:58 PM EST [facility] Blood Venous blood specimen / Unknown Venipuncture / Unknown 06/03/2024 9:30 AM EST 06/03/2024 9:30 AM EST us Claire Marshall MD LAB BLOOD ORDERABLES Final Resul t Performing Organization Address [facility]/ZIP Co de Phone Number [facility] [address] [place] [address], [place] [phone] * Hemoglobin A1c (06/03/2024 9:30 AM EST) Hemoglobin A1C 5.4 <6.5 % LAB CHEMISTRY METHOD 06/03/2024 1:56 PM EST [facility] Mean Bld Glu Estim. 108 mg/dL LAB CHEMISTRY METHOD 06/03/2024 1:56 PM [facility] Blood Venous blood specimen / Unknown Venipuncture / Unknown 06/03/2024 9:30 AM EST 06/03/2024 9:30 AM EST us Claire Marshall MD LAB BLOOD ORDERABLES Final Resul t Performing Organization Address City/[facility]/ZIP Co de Phone Number [facility] [address] [place] [address], [place] [phone] * (ABNORMAL) Comprehensive metabolic panel (06/03/2024 9:30 AM EST) Sodium 138 133 - 145 mmol/L LAB CHEMISTRY METHOD 06/03/2024 12:58 PM EST [facility] Potassium 4.0 3.5 - 5.5 mmol/L LAB CHEMISTRY METHOD 06/03/2024 12:58 PM EST [facility] Chloride 105 96 - 110 mmol/L LAB CHEMISTRY METHOD 06/03/2024 12:58 PM [facility] CO2 30 21 - 32 mmol/L LAB CHEMISTRY METHOD 06/03/2024 12:58 PM [facility] Anion Gap 3 3 - 11 LAB CHEMISTRY METHOD 06/03/2024 12:58 PM [facility] Glucose 98 70 - 100 mg/dL LAB CHEMISTRY METHOD 06/03/2024 12:58 PM [facility] BUN 5 5 - 25 mg/dL LAB CHEMISTRY METHOD 06/03/2024 12:58 PM [facility] Creatinine 0.68(L) 0.70 - 1.30 mg/dL LAB CHEMISTRY METHOD 06/03/2024 12:58 PM [facility] eGFR 106 >=60 mL/min/1. 73m2 LAB CHEMISTRY METHOD 06/03/2024 12:58 PM [facility] Comment:Calculation based on the??Chronic Kidney Disease Epidemiology Collaboration (CKD-EPI) equation refit??without adjustment for race. BUN/Creatinine Ratio 7.4 LAB CHEMISTRY METHOD 06/03/2024 12:58 PM [facility] Calcium 8.7 8.5 - 10.5 mg/dL LAB CHEMISTRY METHOD 06/03/2024 12:58 PM [facility] AST (SGOT) 26 10 - 42 unit/L LAB CHEMISTRY METHOD 06/03/2024 12:58 PM [facility] ALT (SGPT) 39 10 - 60 unit/L LAB CHEMISTRY METHOD 06/03/2024 12:58 PM [facility] Alkaline Phosphatase 66 42 - 121 unit/L LAB CHEMISTRY METHOD 06/03/2024 12:58 PM [facility] Total Protein 6.8 6.0 - 8.0 g/dL LAB CHEMISTRY METHOD 06/03/2024 12:58 PM [facility] Albumin 3.7 3.2 - 5.0 g/dL LAB CHEMISTRY METHOD 06/03/2024 12:58 PM [facility] Total Bilirubin 1.5(H) 0.0 - 1.4 mg/dL LAB CHEMISTRY METHOD 06/03/2024 12:58 PM [facility] Blood Venous blood specimen / Unknown Venipuncture / Unknown 06/03/2024 9:30 AM EST 06/03/2024 9:30 AM EST us Claire Marshall MD LAB BLOOD ORDERABLES Final Resul t [facility] [address] [place] [address], * (ABNORMAL) [id number], RSV, Influenza A and B qualitative RT-PCR (05/27/2024 8:22 AM EST) SARS COV-2 Not Detected Not Detected LAB MOLECULAR DIAGNOSTICS METHOD 05/28/2024 12:17 AM [facility] Comment: Disclaimer: The manner in which this information is used to guide patient care is the responsibility of the healthcare provider. Testing was performed using the [employer] m SARS-CoV-2 test. This test has been authorized by FDA under an Emergency Use Authorization (EUA). This test is only authorized for the duration of time the declaration that circumstances exist justifying the authorization of the emergency use of in vitro diagnostic tests for detection of SARS-CoV-2 virus and/or diagnosis of COVID-19 infection under section 564(b)(1) of the Act, 21 U.S.C. 360bbb- 3(b)(1), unless the authorization is terminated or revoked sooner. Fact sheet for Healthcare Providers can be found at: https://www.fda.gov/media/489307/download Fact sheet for Patients can be found at: https://www.fda.gov/media/115870/download Influenza A PCR Detected(A ) Not Detected LAB MOLECULAR DIAGNOSTICS METHOD 05/28/2024 12:17 AM [facility] Influenza B PCR Not Detected Not Detected LAB MOLECULAR DIAGNOSTICS METHOD 05/28/2024 12:17 AM EST [facility] RSV PCR Not Detected Not Detected LAB MOLECULAR DIAGNOSTICS METHOD 05/28/2024 12:17 AM EST [facility] Swab Nasopharyngeal structure / Unknown Non-blood Collection / Unknown 05/27/2024 8:22 AM EST 05/27/2024 8:22 AM EST Carlos Hughes C S S REPRESENTATIVE LAB MICROBIOLOGY - GENERAL O RDERABLES Final Result [facility] ([facility]) [facility] [address] [place] [address], * Hepatitis C Screening (04/01/2016) Hepatitis C Screening abstracted Historical Provider HEALTH MAINTENANCE Final Result * Colonoscopy (09/10/2014) Colonoscopy no interpreta tion,abstr acted Anatomical Region Laterality Modality Other Historical Provider HEALTH MAINTENANCE Final Result from Last 3 Months or Most Recently Relevant to Health Maintenance Insurance [facility] Care Teams Power Press Operator Relationship Specialty Start Date End Date Claire Marshall MD [address] [place] [id number] [facility] - General 02/20/1999
--- OUTSIDE RECORDS SUMMARY | 2024-08-10 16:17 | XMS_ITS | Encounter Summary ---
Author Organization [facility] Address [address] [place] [address] Care Team Providers Care Cloth Weaver Name Role Phone Claire Marshall MD Primary Care Provider [phone] Reason for Visit * Reason Onset Date Comments Ear Fullness 08/08/2024 Encounter Details Date Type Department Care Team (Late st Contact Info) Description 08/08/2024 Telephone Adult Medicine [facility] [address] [place] [phone] Claire Marshall MD [address] [place] [address] Ear Fullness Social History Tobacco Use Types Packs/Day Years Used Date Smoking Tobacco: Former Smokeless Tobacco: Never Alcohol Use Standard Drinks/Week Comments Yes 0 (1 standard drink = 0.6 oz pur e alcohol) Sex and Gender Information Value Date Recorded Sex Assigned at Not on file Legal Sex Male 9:00 AM EST Gender Identity Not on file Sexual Orientation Not on file documented as of this encounter Progress Notes * Shira Newton RN - 08/08/2024 4:30 PM EDT Call to pt. Left message for pt to call triage * Maddy Reese - 08/08/2024 8:51 AM EDT Patient call requires triage: Symptoms patient is presenting: patient states he had some dental work done and has been on antibiotics - states he is now having some ear issues - states feels like water in his ear and can hear hisheartbeat in his left ear How long has patient had these symptoms?: this morning For ALL patients calling to schedule any appointment (routine, sick visit, follow up, consult, etc.) in the outpatient setting please ask the following questions: Do you have fever of higher than 101, sore throat with difficulty swallowing or severe shortness ofbreath? no If YES to any of these above symptoms, send a message to triage and do not book. Red dot. If no, an audio or video visit should be booked. Have you had close contact with someone with Coronavirus in the last 14 days? no Have you traveled abroad? no Have you traveled recently to another state outside of [place], [place], [place], [place], [place], [place], [place]? no o If yes, did you quarantine for 14 days or have a negative covid test? no If yes to any of the above, patient is not to be scheduled in office until after 14 day quarantine or negative covid test. If pain or injury related was it due to an accident at work or from a motor vehicle accident? If yes, date of accident/Injury: No If yes, gather 3rd democrat insurance information Third Green Party Information: not applicable PCP: Claire Marshall MD Payor: [facility] / Plan: [employer] / Product Type: *No Product type* / documented in this encounter Plan of Treatment Upcoming Encounters Date Type Department Care Team (Late st Contact Info) Description 11/05/2024 9:30 AM EDT Office Visit Orthopedic Surgery - [place] [address] [facility] [address] [place] [phone] Trace Russo MD [address] [address] 11/17/2024 4:00 PM EDT Office Visit Adult Medicine [address] [phone] Claire Marshall MD [address] [place] [phone] documented as of this encounter Visit Diagnoses Not on filedocumented in this encounter Care Teams Cloth Weaver Relationship Specialty Start Date End Date Claire Marshall MD [address] [place] [address] PCP - General 02/20/1999 documented as of this encounter
[2024-08-10 16:19] LABS: Basophils Percent Auto 0.7 % (0-2); Eosinophils Absolute Auto 0.1 X10*3/uL (0.0-0.4); Eosinophils Percent Auto 0.9 % (0-4); Hematocrit 39.3 % (42.0-52.0); Hemoglobin 13.4 g/dl (14.0-18.0); Imm Gran Abs Auto 0.02 X10*3/uL (0.00-0.03); Imm Gran Pct Auto 0.4 % (0.0-0.4); Lymphocytes Absolute Auto 1.1 X10*3/uL (1.2-4.9); Lymphocytes Percent Auto 19.7 % (20-40); Mean Corpuscular HGB Conc 34.1 g/dl (31.0-36.0); Mean Corpuscular Hemoglobin 31.2 pg (27.0-33.0); Mean Corpuscular Volume 91.4 fL (80.0-98.0); Mean Platelet Volume 9.5 fL (9.4-12.4); Monocytes Absolute Auto 0.5 X10*3/uL (0.1-1.2); Monocytes Percent Auto 8.3 % (2-11); Neutrophils Absolute Auto 3.9 x10*3/uL (2.0-8.3); Platelet Count 169 X10*3/uL (160-400); Red Cell Distribution Width 13.2 % (11.0-16.0); White Blood Count 5.5 X10*3/uL (4.8-10.8)
[2024-08-10 16:27] LABS: Appearance Urine Clear; Color Urine Yellow; Glucose Urine UA Negative (Negative); Leukocyte Esterase Urine Negative (Negative); Nitrite Urine Negative (Negative); Specific Gravity - Urine <= 1.005 (1.005-1.025); Urine Blood Negative (Negative); Urine Ketones Negative (Negative); Urine Protein Negative (Neg-Trace)
[2024-08-10 17:01] LABS: Alanine Aminotransferase 22 U/L (0-40); Albumin Level 4.2 g/dL (3.5-5.0); Anion Gap 14 (12-20); Aspartate Amino Transferase 24 U/L (5-37); Bilirubin Direct 0.4 mg/dL (0.0-0.5); Bilirubin Total 1.6 mg/dL (0.0-1.0); Blood Urea Nitrogen 9 mg/dL (9-16); Calcium 9.5 mg/dL (8.4-10.2); Carbon Dioxide 25 mmol/L (22-29); Chloride 107 mmol/L (96-108); Creatinine Clr Calc Pharmacy 133.4; Estimated Glomerular Filt Rate > 60; Glucose Random 96 mg/dL (60-115); Potassium 4.3 mmol/L (3.3-5.1); Sodium 142 mmol/L (135-145)
[2024-08-10 17:05] LABS: Lipase 21 U/L (8-78)
[2024-08-10 17:26] LABS: Alkaline Phosphatase 73 U/L (39-117)
--- NOTE | 2024-08-10 17:38 | ECG_ITS ---
Test Reason : ABD PAIN Blood Pressure : */* mmHG Vent. Rate : 54 BPM Atrial Rate : 54 BPM P-R Int : 180 ms QRS Dur : 94 ms QT Int : 432 ms P-R-T Axes : 3 -8 2 degrees QTcB Int : 409 ms Sinus bradycardia Incomplete right bundle branch block Borderline ECG When compared with ECG of 24-Nov-2023 15:26, T wave inversion less evident in Anterior leads Referred By: Khadra Goodman Electronically Signed By: BEV YANG
[2024-08-10 17:56] VITALS: BP 146/80; PULSE 67; RESP 18; TEMP 36.6; O2SAT 98
== END 2024-08-10 17:57 | disposition home or self-care (01) ==
PROVIDERS: Nurse Practitioner Family; Emergency Provider Emergency Medicine; PCP Internal Medicine
DX: R10.12 Left upper quadrant pain (principal); R14.0 Abdominal distension (gaseous); I10 Essential (primary) hypertension
CPT/HCPCS: 36415; 80048; 80076; 81003; 83690; 85025; 93005; 99283; 99284

== ENCOUNTER → 2024-08-10 17:38 | Outpatient (BNV) | payer OTHER, SELFPAY | PROVIDERS: Emergency Provider Emergency Medicine; PCP Internal Medicine; Visit Provider Internal Medicine | DX: I45.10 Unspecified right bundle-branch block (principal); R00.1 Bradycardia, unspecified | CPT/HCPCS: 93010 ==